=== PATIENT | female | born 1945 | race Caucasian/White ===

== ENCOUNTER → 2016-04-07 | Day surgery (SDC) | payer OTHER ==
[~2016-04-07] VITALS: Ht 160 cm; Wt 74.4 kg
[~2016-04-07] MED LIST: AUGMENTIN 875-1 EACH PO; DILTIAZEM ER120 M2 PO; ELIQUIS5 M1 PO; GABAPENTIN100 M2 PO; HYDROCHLOROTH12.5 M3 PO; METOPROLOL TART25 M1 PO; PROAIR HFA8.5 GM INH; SERTRALINE HCL25 MG PO; SIMVASTATIN40 M1 PO
--- NOTE | 2016-04-07 10:45 | RADIOLOGY REPORT ---
EXAMINATION: XR PORTABLE CHEST CLINICAL INFORMATION: 70-year-old female status post Port-A-Cath placement. COMPARISON: CXR from 02/28/2016 TECHNIQUE: Portable view of the chest was obtained. FINDINGS: Lungs are well expanded and clear. Cardiac silhouette is enlarged but unchanged. There is atherosclerotic calcification of the thoracic aorta. A right Port-A-Cath has been placed; the catheter terminates in the region of the superior vena cava and right atrial junction. There is no pneumothorax or pleural effusion. IMPRESSION: 1. Cardiomegaly. No acute cardiopulmonary abnormalities compared to 02/28/2016. 2. Port-A-Cath is in satisfactory position.
--- NOTE | 2016-04-08 14:42 | RADIOLOGY REPORT ---
EXAMINATION:\H\ \N\XR CHEST CLINICAL INFORMATION: Port-A-Cath insertion. COMPARISON: Chest x-ray dated 02/28/2016. TECHNIQUE: Single PA view of the chest was obtained. FINDINGS: Right subclavian port placement. The port tip is not well visualized on the final spot view. Refer to operative notes for details. IMPRESSION: Right subclavian port placement. Refer to operative notes for details.
--- NOTE | 2016-04-09 11:47 | Operative Report ---
Operative/Inv Procedure Report Surgery Date: 04/07/16 Name of Procedure: Fluoroscopic guided tunneled insertion of Port-A-Cath via right subclavian vein Pre-Operative Diagnosis: Colon cancer Post-Operative Diagnosis: Same Estimated Blood Loss: scant Surgeon/Yard Rigger: TYE URIAS,ADRIEN Amaya Anesthesia: local monitored anesthesi Operative/Procedure Note Note: With the patient supine on the OR table, right arm tucked, head not turned, after induction of MAC sedation, the patient's right subclavian area, including the shoulder neck and contralateral chest, were prepped and draped in the usual sterile fashion. After injecting local anesthetic in the right infraclavicular area, skin, subcutaneous to the clavicle, and inferiorly where the pocket will be, the patient was repositioned to Trendelenburg. Putting your right index finger on the sternal notch and thumb pressing down lateral to the curve of the clavicle, I made a puncture through the skin with the 15 blade scalpel next to thumb. Then along that line towards the tip of your finger, advance a large- bore needle, bevel towards the feet, on a slip tip 10 mL syringe barrel flat against the deltoid, advancing to bone and then "walking" it down just under the clavicle keeping the needle flat as possible, while maintaining vacuum with the plunger, accessing the subclavian venous blood, then replacing the syringe with a wire, sliding in with minimum resistance, confirming the position with the C- arm fluoroscope, making sure the wire is traveling down along the cava towards the right side of the heart and not up or across, and no ectopy. Next I secured the wire to the drape, measured (approximately 23 cm), cut and attached the catheter to the port. Approximately 3-4 cm inferior to the stick site a 2-1/2 cm long skin incision was made with a 15 blade scalpel along Langers lines. It was deepened with cautery and a space was developed inferiorly under the subcutaneous layer. The Port-A-Cath was laid in there and secured in [address] with 2-0 Prolene through the holes in the port, the sutures were kept loose on snaps at this point. Next the catheter was tunneled up subcutaneously with a snap and brought out through the stick site next to the wire. Then the dilator only, was passed over the wire until you could feel it slide under the clavicle, then removed, then re-advanced this time with the peel-away sheath over it, while advancing simultaneously pull the dilator out and advance the sheath, eventually pulling out the dilator and wire completely. Then the catheter was put into the sheath as far as it'll go then while holding that knuckle down with DeBakey's, gently peel-away the sheath with your product development assistant. Now the correct position of the catheter was confirmed with the fluoroscope, using a Olivier needle and heparinized saline solution, the catheter was first aspirated then flushed with approximately 3 mL's, with minimal resistance. The patient was repositioned to neutral, after tying down the 2 Prolenes, the larger incision was closed in layers, 3-0 Vicryl deep and 4-0 subcuticular Monocryl for the skin, and one subcuticular Monocryl for the stick site. Both areas were covered with Mastisol Steri-Strips Telfa and Tegaderm. Chest x-ray was ordered to be done in the recovery room. Lap and sponge counts were correct. Wound expectancy was clean, IV fluids crystalloid, complications none, patient tolerated the procedure well was awakened and returned to the recovery room in satisfactory condition.
== END ==
LOC: STS 03:35
DX: C18.0 Malignant neoplasm of cecum (principal); Z87.891 Personal history of nicotine dependence; I10 Essential (primary) hypertension; I48.0 Paroxysmal atrial fibrillation; I34.0 Nonrheumatic mitral (valve) insufficiency; I25.10 Atherosclerotic heart disease of native coronary artery without angina pectoris; Z79.01 Long term (current) use of anticoagulants
CPT/HCPCS: 93005; 93010; C1751; J0690; J1644; J2250; J2405

== ENCOUNTER 2016-08-11 08:29 | Inpatient (IN) | payer OTHER ==
[~2016-08-11] VITALS: Ht 160 cm; Wt 75.0 kg
[~2016-08-11 08:29] MED LIST changes: -DILTIAZEM ER120 M2 PO; -GABAPENTIN100 M2 PO; -PROAIR HFA8.5 GM INH; -SERTRALINE HCL25 MG PO
--- NOTE | 2016-08-11 08:33 | ED DYSPNEA/ASTHMA COMPLAINT ---
History of Present Illness General Chief Complaint: Dyspnea (COPD, CHF, Other) Stated Complaint: SOB Source: patient, old records, EMS Exam Limitations: no limitations Vital Signs & Intake/Output Vital Signs & Intake/Output Vital Signs Date Time Temp Pulse Resp B/P B/P Pulse O2 O2 Flow FiO2 Mean Ox Delivery Rate 08/12 0803 97 116/60 08/12 0803 97.9 86 18 13/80 95 Nasal 2.0L Cannula 08/12 0800 Nasal 3.0L Cannula 08/12 0009 98.0 97 18 116/60 93 Nasal 2.0L Cannula 08/12 0000 Nasal 3.0L Cannula 08/11 2147 Nasal 2.5L Cannula 08/11 2048 93 112/62 08/11 1739 Nasal 3.0L Cannula ED Intake and Output 08/12 0000 08/11 1200 Intake Total 712 Output Total 900 1100 Balance -188 -1100 Intake, IV 52 Intake, Oral 660 Output, Urine 900 1100 Patient 173 lb 172 lb Weight Weight Chair scale Reported by Patient Measurement Method Allergies Coded Allergies: red dye (RASH 01/16/16) Uncoded Allergies: NARCOTICS (Intermediate, VOMITING 01/16/16) Reconcile Medications Apixaban (Eliquis) 5 MG TABLET 1 TAB PO BID ANTICOAGULATION Metoprolol Tartrate 25 MG TABLET 1 TAB PO BID BP (Reported) Simvastatin (Simvastatin*) 40 MG TABLET 1 TAB PO QPM DIRECTED (Reported) Triage Nurses Notes Reviewed? yes Onset: Abrupt Duration: since 3 am Timing: multiple episodes today Severity: moderate, severe Activities at Onset: sleep Associated Symptoms: DYSPNEA, HYPOXIA HPI: This is a 71-year-old female with history of colon resection for cancer in February, new diagnosis of A. fib in March presents via EMS from home for chief complaint of shortness of breath started abruptly at 3:00 this morning. She states the shortness of breath woke her up from sleep. She did brief episode of pain underneath her arm and chest heaviness. She states she had to holler for her granddaughter to help her. She is not on oxygen at home but she used her inhaler without any relief. Denies any fever or chills. Denies any productive cough. She is due to have a follow up ECHO by Dr. Crum next week because she had an EF of 35% on the previous one while in the hospital. At that time it was unclear if the EF was low secondary to chemotherapy toxicity. Family reports that she looked blue when they found her. She was placed on a non rebreather by EMS which improved the patient's symptoms. Past History Travel History Traveled to [place] past 21 day No Medical History Any Pertinent Medical History? see below for history Neurological: NONE EENT: NONE Cardiovascular: aortic aneurysm, AFIB, hypertension, hyperlipidemia, syncope Respiratory: NONE Gastrointestinal: NONE Hepatic: NONE Renal: NONE Musculoskeletal: osteoarthritis Psychiatric: NONE Endocrine: NONE Blood Disorders: NONE Cancer(s): colon/rectal cancer ANY COMMODITY BUYER/Reproductive: NONE History of MRSA: No History of VRE: No History of CDIFF: No Influenza Vaccine: 12/21/15 Surgical History Surgical History: appendectomy, hysterectomy, bilateral oophorectomy BLADDER SX CARPAL TUNNEL SX Psychosocial History Who do you live with Patient/Self Services at Home None What is your primary language Occitan Tobacco Use: Quit >30 days ago ETOH Use: denies use Illicit Drug Use: denies illicit drug use Family History Hx Contributory? No Review of Systems Review of Systems Constitutional: Denies: chills, fever. EENTM: Reports: no symptoms. Respiratory: Reports: short of breath. Denies: cough, sputum production. Cardiovascular: Reports: palpitations. Denies: chest pain, peripheral edema, syncope. GI: Denies: abdominal pain, nausea, vomiting. Genitourinary: Denies: discharge, dysuria. Musculoskeletal: Reports: no symptoms. Skin: Reports: no symptoms. Neurological/Psychological: Reports: no symptoms. Hematologic/Endocrine: Denies: bruising, bleeding, polyuria, polydipsia. Immunologic/Allergic: Denies: splenectomy. All Other Systems: Reviewed and Negative Physical Exam Physical Exam General Appearance: well developed/nourished, alert, awake, anxious, mild distress, moderate distress Head: atraumatic, normal appearance Eyes: Bilateral: normal appearance, PERRL. Ears, Nose, Throat: normal pharynx, abnormal Tympanic (R) Neck: supple, JVD Respiratory: accessory muscle use, wheezing, respiratory distress Cardiovascular: irregularly irregular Peripheral Pulses: 2+ radial (R), 2+ radial (L) Gastrointestinal: soft, DISTENDED Extremities: normal inspection, normal range of motion, no edema Neurologic/Psych: awake, alert, oriented x 3 Skin: intact, normal color, warm/dry Core Measures ACS in differential dx? Yes ASA ordered for poss ACS? No-ACS ruled out Severe Sepsis Present: No Septic Shock Present: No Progress Differential Diagnosis: bronchitis, CHF, COPD, pulmonary embolism, pneumonia, PLEURAL EFFUSION, CARDIOTOXICITY FROM CHEMOTHERAPY Plan of Care: Orders Procedure Date/time Status MAGNESIUM 08/13 0600 Active BASIC ELECTROLYTES PLUS BUN&CR 08/13 0600 Active MAGNESIUM 08/12 0637 Complete Lab Add-on Test 08/12 UNK Active RT: Evaluation 08/11 2146 Active THERAPIST ORDERS 08/11 2144 Complete OXYGEN SETUP (GEN) 08/11 2144 Complete Weight 08/11 1753 Active Vital Signs 08/11 172 Active Teach/Educate 08/11 172 Active Pain Treatment and Response 08/11 172 Active Nutritional Intake, Monitor 08/11 1723 Active Isolation 08/11 1723 Active Intake & Output 08/11 1723 Active Patient Care Conference 08/11 1723 Active Activity/Ambulation 08/11 1723 Active OXYGEN SETUP CHG 08/11 UNK Complete INCENTIVE SPIROMETRY TRX CHG 08/11 UNK Complete AEROSOL CHG 08/11 UNK Complete OXYGEN 08/11 UNK Complete OXYGEN TRANSPORT 08/11 UNK Complete Current Medications Sig/Cathy Start time Last Medication Dose Stop Time Status Admin Oxycodone HCl 5 MG Q6 PRN 08/12 0815 AC (Roxicodone) Oxycodone HCl 10 MG Q6 PRN 08/12 0815 AC (Roxicodone) Albuterol Sulfate 3 ML Q4P PRN 08/11 2215 AC 08/11 (Proventil) 2145 Ipratropium [place] 2.5 ML Q4P PRN 08/11 2215 AC 08/11 (Atrovent) 2145 Apixaban 5 MG BID 08/11 2200 AC 08/12 (Eliquis) 0803 Metoprolol Tartrate 25 MG BID 08/11 2200 AC 08/12 (Lopressor) 0803 Furosemide 20 MG 0730,1630 08/11 1800 AC 08/12 (Lasix) 0803 Atorvastatin Calcium 20 MG 1700 08/11 1700 AC 08/11 (Lipitor) 1857 Acetaminophen 650 MG Q6P PRN 08/11 1215 AC (Tylenol) Diltiazem HCl 125 MG Q24H 08/11 1145 AC 08/12 (Cardizem DRIP) 1049 Sodium Chloride 100 ML (Normal Saline 0.9%) Laboratory Tests 08/12/16 0637: Anion Gap 9, Estimated GFR > 60, BUN/Creatinine Ratio 26.7 H, Magnesium 1.8, Triglycerides 245 H, Cholesterol 137, LDL Cholesterol, Calc 52 L, HDL Cholesterol 36 L, Cholesterol/HDL Ratio 4, PT 12.6 H, INR 1.20 H, CBC w Diff NO MAN DIFF REQ, RBC 3.98 L, MCV 98.9, MCH 33.6 H, RDW 18.3 H, MPV 8.2, Gran % 68.2, Lymphocytes % 21.2, Monocytes % 7.6, Eosinophils % 2.4, Basophils % 0.6, Absolute Granulocytes 5.6, Absolute Lymphocytes 1.7, Absolute Monocytes 0.6, Absolute Eosinophils 0.2, Absolute Basophils 0, PUBS MCHC 34.0 08/11/16 2115: Troponin I 0.04 08/11/16 1616: Lactic Acid 1.8 patietn with improved heart rate after IV lopressor. Feels slightly improved after neb but still minimal air movement. iv lasix 20 mg ordered. cardizem drip ordered. d/w dr crum. dr dixon covering in [facility] today adn he will see the patient. Admitted to hospitalist service. patient much improved after IV lasix, breathing is now normalizing. Patient appears well. (ARSH URIAS,BRYAN) Diagnostic Imaging: Viewed by Me: Radiology Read. Discussed w/RAD: Radiology Read. CXR Impression: PATIENT: LENNOX REDDING PRESENT AGE : 71 PATIENT ACCOUNT NO: [id number] : 45 LOCATION: [facility] ORDERING PHYSICIAN: BRYAN CABAN MD SERVICE DATE: 08/11/16 EXAM TYPE: RAD - XRY -PORTABLE CHEST XRAY EXAMINATION: XR PORTABLE CHEST CLINICAL INFORMATION: Dyspnea, new onset atrial fibrillation. COMPARISON: 07/22/2016. TECHNIQUE: Portable frontal view of the chest was obtained. FINDINGS: Single lumen implanted right subclavian catheter is identified with its tip in the right atrium unchanged.. Lung volumes are diminished. Heart appears mildly enlarged which has increased in the interval. New bibasilar opacities suggest trace bilateral pleural effusions and atelectasis. Infiltrate less likely though not excluded. While there is some mild increase in interstitial markings, no overt pulmonary edema or cephalization of the pulmonary vasculature is seen. There is no evidence of pneumothorax. Included osseous structures appear largely unremarkable. IMPRESSION: The heart is enlarged with low lung volumes with mild interstitial prominence with probable bilateral trace pleural effusions along with basilar atelectasis. DICTATED BY: LADAN LEONE MD DATE/TIME DICTATED:911 DRAIN LAYER:MIKE DATE/TIME TRANSCRIBED:08/11/16911 CONFIDENTIAL, DO NOT COPY WITHOUT APPROPRIATE AUTHORIZATION. <Electronically signed in Other Vendor System> SIGNED BY: LADAN LEONE MD 08/11/16918 Initial ED EKG: RAPID AFIB/FLUTTER Rhythm Strip: atrial flutter Departure Departure Time of Disposition: 1051 Disposition: STILL A PATIENT Condition: Stable Clinical Impression Primary Impression: Rapid atrial fibrillation Secondary Impressions: CHF (congestive heart failure), Dyspnea Referrals: JONNY URIAS,MATILDE (PCP/Family) PONCHO URIAS,MARY CRUM MD,Jamarcus MANRIQUE Departure Forms: Customer Survey General Discharge Information Admission Note Spoke With: RAKEL URIAS,JACQUIE Colon Documentation of Exam: Documentation of any treatments & extenuating circumstances including Concerns Regarding Discharge (functional status, medication knowledge or non-compliance, living conditions, etc.) that warrant an admission rather than observation: [ TELE MONITOR, CAREFUL DIURESIS, MONITOR I/O, CARDIOLOGY CONSULT DR DIXON, HEART RATE CONTROL] Critical Care Note Critical Care Note Critical Care Time: 30-74 min
--- NOTE | 2016-08-11 08:36 | NUR ---
PT C/O SOB X FEW DAYS BUT TODAY UNABLE TO GET IT UNDER CONTROL. PT CURRENTLY BEING TREATED FOR COLON CANCER WITH CHEMO WHICH WAS RECENTLY D/C'D D/T SOB. PT DENIES CP BUT STATES + CHEST HEAVINESS. PT IN RAPID A FIB WHICH SHE TAKE ELAQUIS FOR. PT CURRENTLY ON NRB AND O2 SATS ARE 96%. DR CABAN AT BEDSIDE FOR EVALUATION FOR
[2016-08-11] MEDS ORDERED: METOPROLOL TART25 M1 PO (09:06)
[2016-08-11 09:08] LABS: ABSOLUTE BASOPHIL COUNT 0.1 /CUMM (0.0-0.2); ABSOLUTE EOSINOPHIL COUNT 0.1 /CUMM (0.0-0.7); ABSOLUTE GRANULOCYTE CT 8.1 /CUMM (1.4-6.5); ABSOLUTE LYMPH COUNT 1.5 /CUMM (1.2-3.4); ABSOLUTE MONOCYTE COUNT 0.3 /CUMM (0.10-0.60); BASOPHIL % 0.9 % (0.0-2.0); EOSINOPHIL % 0.8 % (0-5); GRANULOCYTE % 80.4 % (42.2-75.2); HEMATOCRIT 43.3 % (37-47); MEAN CORPUSCULAR HGB 33.2 PG (27.0-31.0); MEAN CORPUSCULAR HGB CONC 33.5 G/DL (33.0-37.0); MEAN CORPUSCULAR VOLUME 99.2 FL (81.0-99.0); MEAN PLATELET VOLUME 7.7 FL (7.4-10.4); PLATELET COUNT 231 /CUMM (130-400); RBC DISTRIBUTION WIDTH 18.5 % (11.5-14.5); RED BLOOD CELL CT 4.37 /CUMM (4.20-5.40); WHITE BLOOD CELL COUNT 10.1 /CUMM (4.8-10.8)
--- NOTE | 2016-08-11 09:19 | RADIOLOGY REPORT ---
EXAMINATION: XR PORTABLE CHEST CLINICAL INFORMATION: Dyspnea, new onset atrial fibrillation. COMPARISON: 07/22/2016. TECHNIQUE: Portable frontal view of the chest was obtained. FINDINGS: Single lumen implanted right subclavian catheter is identified with its tip in the right atrium unchanged.. Lung volumes are diminished. Heart appears mildly enlarged which has increased in the interval. New bibasilar opacities suggest trace bilateral pleural effusions and atelectasis. Infiltrate less likely though not excluded. While there is some mild increase in interstitial markings, no overt pulmonary edema or cephalization of the pulmonary vasculature is seen. There is no evidence of pneumothorax. Included osseous structures appear largely unremarkable. IMPRESSION: The heart is enlarged with low lung volumes with mild interstitial prominence with probable bilateral trace pleural effusions along with basilar atelectasis.
[2016-08-11 09:20] LABS: PT 13.4 SEC (9.4-12.5); PTT 23 SEC (25-37)
--- NOTE | 2016-08-11 09:30 | NUR ---
CRITICAL TEST RESULTS [id number] LENNOX REDDING 71 F TESTS AND RESULTS: LACTIC 2.7 Results received and read back by: MATEUS YU Results received date and time: 08/11/16 0930 The following provider was notified of the results, and read the results back: DR CABAN Notified date and time: 08/11/16 at 0930
--- NOTE | 2016-08-11 10:07 | NUR ---
PT MEDICATED DOCUMENTED IN [facility]. FAMILY MEMBERS AT BEDSIDE
--- NOTE | 2016-08-11 10:18 | NUR ---
PT ASSISTED ONTO BEDSIDE COMMODE. CALL MORALES WITHIN REACH
--- NOTE | 2016-08-11 10:40 | NUR ---
URINE SPECIMEN SENT TO LAB
--- NOTE | 2016-08-11 11:00 | History & Physical ---
NIYAH GHOSH 08/11/16 1100: General Information and HPI MD Statement: I have seen and personally examined LENNOX MARX and documented this H&P. The patient is a 71 year old F who presented with a patient stated chief complaint of [persistent shortness of breath]. Source of Information: patient, family Exam Limitations: no limitations History of Present Illness: Mrs. Marx is a 71-year-old lady with a PMH of HFrEF with LVEF 30-35% ( echocardiogram 07/14/2016), HTN, HLD, infrarenal AAA, CAD, A. fib with history of ventricular ectopy, colon cancer s/p right hemicolectomy (02/2016) currently undergoing chemotherapy with Dr. Houston (completed 6 rounds every 2 weeks of 5-FU) who presents with complaints of persistent/worsening shortness of breath. She reports that since her third round of chemotherapy she has been experiencing intermittent episodes of shortness of breath that has now become constant and worsening over the past few days. She she describes this as a difficulty moving air with associated exertional shortness of breath significant enough to limit her ability to do dishes, put on clothes and walk up steps. She denies any chest pain, palpitations, dizziness during this time. At her baseline she uses 3 pillows to sleep which has been stable for multiple years. She does endorse a few episodes of PND requiring the fan to alleviate her shortness of breath. Symptoms were significant enough to wake her up from sleep for the first time on Wednesday morning at 2 AM thAT resolved on its own. This morning she was again woken up by the same sensation of SOB unable to speak associated with sweating and noted to be cyanotic "purple face and lips". She does endorse intermittent episodes of night sweats since her chemotherapy started. 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 self Services at Home: None ETOH Use: denies use Illicit Drug Use: denies illicit drug use Functional Ability ADLs Independent: dressing, eating, toileting, bathing. Ambulation: independent IADLs Independent: shopping, housework, finances, food prep, telephone, transportation , medication admin. Review of Systems Review of Systems Constitutional: Reports: see HPI. EENTM: Reports: no symptoms. Cardiovascular: Reports: see HPI. Respiratory: Reports: see HPI. GI: Reports: see HPI. Musculoskeletal: Reports: see HPI. Skin: Reports: no symptoms. Exam & Diagnostic Data Last 24 Hrs of Vital Signs/I&O Vital Signs Date Time Temp Pulse Resp B/P B/P Pulse O2 O2 Flow FiO2 Mean Ox Delivery Rate 08/11 1247 97.9 98 20 120/74 96 Nasal 2.0L Cannula 08/11 1030 82 20 112/62 93 Nasal 2.0L Cannula 08/11 1006 97.0 109 20 107/68 08/11 1000 108 20 107/68 96 08/11 0927 92 Nasal 2.0L Cannula 08/11 0905 92 Nasal 3.0L Cannula 08/11 0834 97.0 111 24 108/88 96 Non 10L ReBreather Intake & Output 08/11 1600 08/11 0800 08/11 0000 Intake Total Output Total 1100 Balance -1100 Output, Urine 1100 Patient 172 lb Weight Weight Reported by Patient Measurement Method Physical Exam General Appearance Alert, Cooperative, No Acute Distress Skin No Significant Lesion, Mid abdominal incision from previous surgery well healed HEENT EOMI, Mucous Membr. moist/pink Cardiovascular Normal S1, Normal S2, Irregularly irregular rhythm Lungs Clear to Auscultation, Normal Air Movement Abdomen Normal Bowel Sounds, Soft, No Tenderness, Increased abdominal girth Extremities No Edema, Normal Pulses Vascular Pulses Symmetrical Last 24 Hrs of Labs/Joce: Laboratory Tests 08/11/16 1157: Lactic Acid 2.2 H 08/11/16 1040: Urine Color STRAW, Urine Clarity CLEAR, Urine pH 6.0, Ur Specific [place] 1.010, Urine Protein NEG, Urine Ketones NEG, Urine Nitrite NEG, Urine Bilirubin NEG, Urine Urobilinogen 0.2, Ur Leukocyte Esterase NEG, Ur Microscopic SEDIMENT EXAMINED, Urine RBC 1-3, Urine WBC RARE, Ur Epithelial Cells RARE, Urine Bacteria MOD H, Urine Hemoglobin TRACE-INTACT, Urine Glucose NEG 08/11/16 0902: Lactic Acid 2.7 H 08/11/16 0854: Anion Gap 13, Estimated GFR > 60, BUN/Creatinine Ratio 26.7 H, Glucose 168 H, Calcium 8.7, Phosphorus 5.4 H, Magnesium 1.8, Total Bilirubin 0.8, AST 49 H, ALT 40, Alkaline Phosphatase 73, Troponin I 0.03, Ivc-V-Wupcxtgszob Pept 3930 H , Total Protein 6.0 L, Albumin 3.5, Globulin 2.5, Albumin/Globulin Ratio 1.4, TSH Pending, Free T4 1.01, PT 13.4 H, INR 1.28 H, APTT 23 L, CBC w Diff NO MAN DIFF REQ, RBC 4.37, MCV 99.2 H, MCH 33.2 H, RDW 18.5 H, MPV 7.7, Gran % 80.4 H, Lymphocytes % 15.0 L, Monocytes % 2.9, Eosinophils % 0.8, Basophils % 0.9, Absolute Granulocytes 8.1 H, Absolute Lymphocytes 1.5, Absolute Monocytes 0.3, Absolute Eosinophils 0.1, Absolute Basophils 0.1, PUBS MCHC 33.5 Diagnostic Data EKG Results Atrial fibrillation. Paired Ventricular premature complexes. Borderline prolonged QT interval. QTc 490 CXR Results The heart is enlarged with low lung volumes with mild interstitial prominence with probable bilateral trace pleural effusions along with basilar atelectasis. Assessment/Plan Assessment: 71-year-old lady with a PMH of HFrEF with LVEF 30-35% (echocardiogram 07/14/2016) , HTN, HLD, infrarenal AAA, CAD, A. fib with history of ventricular ectopy, colon cancer s/p right hemicolectomy (02/2016) currently undergoing chemotherapy with Dr. Huoston (completed 6 rounds every 2 weeks of 5-FU) who presents with complaints of persistent/worsening shortness of breath. Symptoms started after her third/fourth round of chemotherapy and have progressively worsened. First episode of shortness of breath waking her up from sleep on Wednesday and a second episode last night with inability to catch her breath associated cyanosis, sweating. VS on admission: BP 108/88, HR 111, RR 24, SPO2 96% on 2 LNC, T 97.0. On arrival SpO2 of 96% on NRB, 86% on room air Pertinent labs: WBC 10.1, H&H 14.5/43.3 platelets 231, Na 142, K+ 3.8, chloride 110, bicarbonate 19, BUN/CR 16/0.6, glucose 168. INR 1.28 Lactic acid: 2.7/2.2 ProBNP 3930 Problem list: 1. A. fib/A flutter with RVR 2. Acute hypoxic respiratory failure: 86% on RA, 96% on NRB on arrival 3. HFrEF with exacerbation: ProBNP 3930 4. Elevated lactic acid: 2.7 5. Mild hypokalemia: 3.8 Plan: * Admit to telemetry for continuous cardiac monitoring. Serial EKG/troponin at 3 PM, 9 PM to rule out ACS * Repeat echocardiogram to assess for LVEF/valve functioning. Patient has had a decline in cardiac output from 50/55% in February 2016 down to 30/35% in June 2016. This could be secondary to her atrial fibrillation. At this time unclear/ unlikely to be due to the 5-fluorouracil * Patient is currently only on a beta magnolia for rare control. We'll discuss with cardiology on utility of starting the patient on lisinopril, furosemide/ spironolactone based on cardiac function and symptoms * We'll maintain patient on 20 mg IV daily starting tomorrow. Monitor renal function, potassium, daily weights, I&O * Incentive spirometry, DuoNeb for hypoxic respiratory failure * Elevation in lactic acid likely secondary to the hypoxia. Trending down at this time * Potassium 3.8, replete with K Dur 40 mEq 1 * Magnesium 1.8, replete with Mag-Ox 4001 * Lipid panel in the a.m. Continue atorvastatin 10 mg daily * Heart healthy diet * DVT prophylaxis: Eliquis 5 mg BID * Full code As Ranked By This Provider Problem List: 1. Rapid atrial fibrillation 2. HFrEF (heart failure with reduced ejection fraction) 3. Dyspnea 4. Lactic acid increased 5. Hypokalemia Core Measures/Miscellaneous Acute Coronary Syndrome ACS Diagnosis: No Cerebrovascular Accident CVA/TIA Diagnosis: No Congestive Heart Failure CHF Diagnosis: No Venous Thromboembolism VTE Risk Factors: Age > 40, Cancer/chemo/oth therapy [facility] prophylaxis d/t: No contraindications No VTE Pharm Prophylaxis d/t: No contraindications VTE Diagnosis: No VTE Type: NONE VTE Confirmed by (Test): NONE Severe Sepsis Severe Sepsis Present: No Septic Shock Septic Shock Present: No Miscellaneous Documentation Attending Case Discussed With: YULISSA MANCILLA MD Primary Care Physician: MATILDE FULLER MD Patient sees these Specialists Klaudia Robertson MD (cardiology) Level of Patient Care: Telemetry Resident Review Statement Resident Statement: examined this patient, discussed with healthcare administration intern, agreed with healthcare administration intern, discussed with family, reviewed EMR data (avail), discussed with nursing , reviewed images SHAREE ELLINGTONADRIANO 08/26/16 0910: General Information and HPI Allergies/Medications Allergies: Coded Allergies: Fish Containing Products (Severe, THROAT CLOSURE 08/13/16) red dye (RASH 01/16/16) Uncoded Allergies: NARCOTICS (Intermediate, VOMITING 01/16/16) Home Med list Apixaban (Eliquis) 5 MG TABLET 1 TAB PO BID ANTICOAGULATION Diltiazem Cd (Diltiazem ER) 120 MG CAP.ER.DEG 120 MG PO DAILY AFIB Gabapentin 100 MG CAPSULE 100 MG PO Q12P PRN ANXIETY Hydrochlorothiazide 12.5 MG CAPSULE 1 CAP PO DAILY DIURETIC Metoprolol Tartrate 25 MG TABLET 37.5 MG PO BID HTN Sertraline HCl 25 MG TABLET 25 MG PO DAILY Anxiety Simvastatin (Simvastatin*) 40 MG TABLET 1 TAB PO QPM DIRECTED (Reported) Attending MD Review Statement Attending Statement Attending MD Statement: examined this patient, discuss w/resident/PA/ELECTRONIC TECH, agreed w/resident/PA/ELECTRONIC TECH, reviewed EMR data (avail), discussed with nursing Attending Assessment/Plan: please see my separate attending note for more details.
--- NOTE | 2016-08-11 11:42 | NUR ---
Resting quietly. Requesting coffee. Family remains at bedside.
--- NOTE | 2016-08-11 12:28 | NUR ---
CRITICAL TEST RESULTS [id number] LENNOX REDDING 71 F TESTS AND RESULTS: LACTIC 2.2 Results received and read back by: CHAD VOGT Results received date and time: 08/11/16 1228 The following provider was notified of the results, and read the results back: DR CABAN Notified date and time: 08/11/16 at 1225
--- NOTE | 2016-08-11 12:31 | NUR ---
MD CORRAL NOTIFIED OF LACTIC ACID 2.2
--- NOTE | 2016-08-11 13:07 | Cons- Cardiology ---
General Information and HPI Consulting Request Date of Consult: 08/11/16 Requested By: YULISSA MANCILLA MD Reason for Consult: Atrial fibrillation, CHF History of Present Illness: The patient is a 70-year-old female with history of CAD, left ventricular dysfunction, and colon cancer, currently undergoing chemotherapy. She is followed in the office by Dr. Robertson. She presents with complaint of worsening shortness of breath over past few days. She describes a significant difficulty breathing over the past 24 to 48 hours, limiting her ability to perform activities of daily living. No chest pain. No palpitations. She has 3 pillow orthopnea which is stable. She was noted to have atrial fibrillation with rapid ventricular rate. Cardizem drip was started. No syncope. No lightheadedness or dizziness. No nausea or vomiting. Allergies/Medications Allergies: Coded Allergies: red dye (RASH 01/16/16) Uncoded Allergies: NARCOTICS (Intermediate, VOMITING 01/16/16) Home Med List: Apixaban (Eliquis) 5 MG TABLET 1 TAB PO BID ANTICOAGULATION Metoprolol Tartrate 25 MG TABLET 1 TAB PO BID BP (Reported) Simvastatin (Simvastatin*) 40 MG TABLET 1 TAB PO QPM DIRECTED (Reported) Current Medications: Current Medications Sig/Cathy Start time Last Medication Dose Route Stop Time Status Admin Acetaminophen 650 MG Q6P PRN 08/11 1215 AC PO Albuterol Sulfate 3 ML ONCE ONE 08/11 0845 DC 08/11 INH 08/11 0846 0910 Apixaban 5 MG BID 08/11 2200 AC PO Atorvastatin Calcium 20 MG 1700 08/11 1700 AC PO Diltiazem HCl 0 .STK-MED ONE 08/11 1148 DC IV Diltiazem HCl 125 MG Q24H 08/11 1145 AC 08/11 Sodium Chloride 100 ML IV 1152 Furosemide 20 MG DAILY 08/12 1000 AC IV Furosemide 0 .STK-MED ONE 08/11 0956 DC IV Furosemide 20 MG ONCE ONE 08/11 0945 DC 08/11 IV 08/11 0946 1006 Ipratropium [place] 2.5 ML ONCE ONE 08/11 0845 DC 08/11 INH 08/11 0846 0910 Magnesium Oxide 400 MG ONE ONE 08/11 1500 DC 08/11 PO 08/11 1501 1525 Metoprolol Tartrate 5 MG ONCE ONE 08/11 1000 DC 08/11 IV 08/11 1001 1006 Metoprolol Tartrate 0 .STK-MED ONE 08/11 0956 DC IV Oxycodone/ 1 TAB Q6P PRN 08/11 1215 AC Acetaminophen PO Oxycodone/ 2 TAB Q6P PRN 08/11 1215 AC Acetaminophen PO Potassium Chloride 0 .STK-MED ONE 08/11 1313 DC PO Potassium Chloride 40 MEQ ONCE ONE 08/11 1215 DC 08/11 PO 08/11 1216 1310 Review of Systems Review of Systems: No rash. No tremor. No melena. No hemoptysis. No hematemesis. All other systems are reviewed and are noted to be negative. 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 self Services at Home: None ETOH Use: denies use Illicit Drug Use: denies illicit drug use Functional Ability ADLs Independent: dressing, eating, toileting, bathing. Ambulation: independent IADLs Independent: shopping, housework, finances, food prep, telephone, transportation , medication admin. Exam & Diagnostic Data Vital Signs and I&O Vital Signs Date Time Temp Pulse Resp B/P B/P Pulse O2 O2 Flow FiO2 Mean Ox Delivery Rate 08/11 1505 86 Room Air 08/11 1247 97.9 98 20 120/74 96 Nasal 2.0L Cannula 08/11 1030 82 20 112/62 93 Nasal 2.0L Cannula 08/11 1006 97.0 109 20 107/68 08/11 1000 108 20 107/68 96 08/11 0927 92 Nasal 2.0L Cannula 08/11 0905 92 Nasal 3.0L Cannula 08/11 0834 97.0 111 24 108/88 96 Non 10L ReBreather Intake & Output 08/11 1600 08/11 0800 08/11 0000 08/10 1600 08/10 0800 08/10 0000 Intake Total Output Total 1100 Balance -1100 Output, Urine 1100 Patient 172 lb Weight Weight Reported by Patient Measurement Method Physical Exam: Gen: The patient is in no acute distress HEENT: Normal nose, ears, and oropharynx. Pupils equal bilaterally. Conjunctiva normal. Neck: Supple with no JVD, no masses, and no thyromegaly Lungs: scattered rales bilaterallywith normal respiratory effort Heart: Irregular irregular, S1, S2, 1/6 systolic murmur at the apex. Left upper extremity edema peripheral edema, 1+ pulses in the lower extremities bilaterally Abdomen: Soft, nontender, no masses. No hepatomegaly. No splenomegaly Extremities: 1+ edema Normal muscle strength in the upper and lower extremities Skin: Normal skin turgor with no skin ulcers or lesions noted. Neuro: Cranial nerves intact. Sensation intact Psych: Alert and oriented 3 with appropriate affect Labs/Joce Results: Laboratory Tests 08/11 08/11 08/11 08/11 1616 1513 1157 1040 Chemistry Lactic Acid (0.7 - 2.1 mmol/L) 1.8 2.2 H Troponin I (< 0.11 ng/ml) 0.03 Urines Urine Color (YEL,AMB,STR) STRAW Urine Clarity (CLEAR) CLEAR Urine pH (5.0 - 8.0) 6.0 Ur Specific [place] (1.001 - 1.035) 1.010 Urine Protein (NEG,<30 MG/DL) NEG Urine Ketones (NEG) NEG Urine Nitrite (NEG) NEG Urine Bilirubin (NEG) NEG Urine Urobilinogen (0.1 - 1.0 EU/dl) 0.2 Ur Leukocyte Esterase (NEG) NEG Ur Microscopic SEDIMENT EXAMINED Urine RBC (0 - 5 /HPF) 1-3 Urine WBC (0 - 2 /HPF) RARE Ur Epithelial Cells (NONE,FEW) RARE Urine Bacteria (NEG/NONE) MOD H Urine Hemoglobin (NEG) TRACE-INTACT Urine Glucose (N MG/DL) NEG 08/11 08/11 0902 0854 Chemistry Sodium (137 - 145 mmol/L) 142 Potassium (3.5 - 5.1 mmol/L) 3.8 Chloride (98 - 107 mmol/L) 110 H Carbon Dioxide (22 - 30 mmol/L) 19 L Anion Gap (5 - 16) 13 BUN (7 - 17 mg/dL) 16 Creatinine (0.5 - 1.0 mg/dL) 0.6 Estimated GFR (>60 ml/min) > 60 BUN/Creatinine Ratio (7 - 25 %) 26.7 H Glucose (65 - 99 mg/dL) 168 H Lactic Acid (0.7 - 2.1 mmol/L) 2.7 H Calcium (8.4 - 10.2 mg/dL) 8.7 Phosphorus (2.5 - 4.5 mg/dL) 5.4 H Magnesium (1.6 - 2.3 mg/dL) 1.8 Total Bilirubin (0.2 - 1.3 mg/dL) 0.8 AST (14 - 36 U/L) 49 H ALT (9 - 52 U/L) 40 Alkaline Phosphatase (<127 U/L) 73 Troponin I (< 0.11 ng/ml) 0.03 Ejy-Y-Qbdaujizyli Pept (<125 pg/mL) 3930 H Total Protein (6.3 - 8.2 g/dL) 6.0 L Albumin (3.5 - 5.0 g/dL) 3.5 Globulin (1.9 - 4.2 gm/dL) 2.5 Albumin/Globulin Ratio (1.1 - 2.2 %) 1.4 TSH (0.270 - 4.200 uIU/mL) 2.110 Free T4 (0.78 - 2.44 ng/dL) 1.01 Coagulation PT (9.4 - 12.5 SEC) 13.4 H INR (0.90 - 1.19) 1.28 H APTT (25 - 37 SEC) 23 L Hematology CBC w Diff NO MAN DIFF REQ WBC (4.8 - 10.8 /CUMM) 10.1 RBC (4.20 - 5.40 /CUMM) 4.37 Hgb (12.0 - 16.0 G/DL) 14.5 Hct (37 - 47 %) 43.3 MCV (81.0 - 99.0 FL) 99.2 H MCH (27.0 - 31.0 PG) 33.2 H RDW (11.5 - 14.5 %) 18.5 H Plt Count (130 - 400 /CUMM) 231 MPV (7.4 - 10.4 FL) 7.7 Gran % (42.2 - 75.2 %) 80.4 H Lymphocytes % (20.5 - 51.1 %) 15.0 L Monocytes % (1.7 - 9.3 %) 2.9 Eosinophils % (0 - 5 %) 0.8 Basophils % (0.0 - 2.0 %) 0.9 Absolute Granulocytes (1.4 - 6.5 /CUMM) 8.1 H Absolute Lymphocytes (1.2 - 3.4 /CUMM) 1.5 Absolute Monocytes (0.10 - 0.60 /CUMM) 0.3 Absolute Eosinophils (0.0 - 0.7 /CUMM) 0.1 Absolute Basophils (0.0 - 0.2 /CUMM) 0.1 PUBS MCHC (33.0 - 37.0 G/DL) 33.5 Diagnostic Data EKG Results EKG tracing is independently reviewed, and reveals atrial fibrillation with ventricular response of 104, premature ventricular contractions CXR Results The heart is enlarged with low lung volumes with mild interstitial prominence with probable bilateral trace pleural effusions along with basilar atelectasis. Assessment/Plan Assessment/Plan Assessment: 1. Coronary artery disease 2. atrial fibrillation with rapid ventricular response 3. Acute on chronic systolic heart failure 4. Colon cancer, recent chemotherapy plan: * Cardizem drip, titrate to ventricular rate less than 100 * Lasix 20 milligrams IV q.12 hours * Monitor input and output with daily weights * Continue anticoagulation with Eliquis * Restart metoprolol 25 milligrams p.o. b.i.d. Consult Acknowledgment - Thank you for your consult request.
--- NOTE | 2016-08-11 13:58 | Admission Certification ---
Admission Certification Certification Statement - As attending physician, I certify that at the time of - admission, based on clinical presentation, severity of - symptoms, need for further diagnostic testing and - therapeutic interventions, and risk of adverse outcomes - without in-hospital treatment, in my clinical assessment, - this patient requires an acute hospital stay for a minimum - of two nights or longer. I have also considered psychsocial - factors such as support system, advanced age, financial - issues, cognitive issues, and failed out-patient treatments, - past re-admission history, safety of patient, and lack of - compliance as applicable. Specific rationale supporting this admission is: afib with rvr and acute systolic chf exacerbation.
--- NOTE | 2016-08-11 14:05 | PN- Att Addend ---
Attending MD Review Statement Attending Statement Attending MD Statement: examined this patient, discuss w/resident/PA/LABELING SPECIALIST, agreed w/resident/PA/LABELING SPECIALIST, discussed with family, reviewed EMR data (avail), discussed w/ nursing Attending Assessment/Plan: 71-year-old female with past medical history of smoking which she quit 1 year ago, has [id number] history of smoking, recent diagnosis of colon cancer status post resection in February 2016 for which she is getting chemotherapy with 5-FU. Patient has got 6 rounds of chemotherapy with the last one being 4 weeks ago. Patient started having these episodes of the intermittent shortness of breath after third round of chemotherapy which are progressively getting worse. Patient woke up this a.m. secondary to feeling shortness of breath around 3 AM and her granddaughter who lives upstairs in the different apartment came down to see her and found her to be short of breath and cyanotic. Patient came to the emergency room for above reason and was found to have heart rates in the range of 130 with atrial fibrillation and was started on cardizem drip. Patient was recently diagnosed with atrial fibrillation in March of this year and since then she has been on Eliquis. Patient in the emergency room was found to have elevated proBNP of 3000. Her CXR showed following- " The heart is enlarged with low lung volumes with mild interstitial prominence with probable bilateral trace pleural effusions along with basilar atelectasis." Patient is being admitted with atrial fibrillation with RVR and acute systolic CHF exacerbation along with possible COPD exacerbation. Patient was recently prescribed pro-air inhaler but patient says it's not helping her. Patient on exam in the emergency room had wheezing per ER physician but she did get nebulizer in the emergency room so currently she is not wheezing. Will likely benefit from starting symbicort or advair at time of discharge. Repeat echo. Cardizem drip started in ER. cardiology consulted. got lasix 20 iv in Er. will do serial trop. will start on 20 mg iv lasix daily. if she starts having wheezing again will start her on duonebs prn as needed. Lactic acid level in ER was 2.7. which is secondary to hypoxia. Does not need iv fluids as pt is in fluid overload.
--- NOTE | 2016-08-11 14:35 | NUR ---
REMAINS IN EXAM ROOM. YANIRA WEEMS INFUSING W/O PROBLEMS. AWAITING ROOM ASSIGNMENT.
--- NOTE | 2016-08-11 14:38 | NUR ---
BED ASSIGNMENT [id number]
--- NOTE | 2016-08-11 15:04 | NUR ---
ATTENDING PAGED TO NOTIFY HIM OF PATIENT'S RA SAT OF 86%. PATIENT IS PLACED BACK ON O2 3L/NC
--- NOTE | 2016-08-11 15:15 | NUR ---
REPEAT TROP DRAWN AND SENT TO THE LAB
--- NOTE | 2016-08-11 16:14 | NUR ---
NURSE CURRENTLY UNAVAILABLE TO TAKE REPORT. WILL CALL BACK.
--- NOTE | 2016-08-11 16:17 | NUR ---
REPEAT LACTIC DRAWN AND SENT TO THE LAB
--- NOTE | 2016-08-11 16:43 | NUR ---
ATTEMPTING TO CALL REPORT FOR 3RD TIME.
[2016-08-12 00:09] VITALS: BP 116/60
--- NOTE | 2016-08-12 03:59 | Event Note ---
Event Note Event Note: Got a call with report that pt had a 6 beat run of v-tach around 3:45 am
--- NOTE | 2016-08-12 04:13 | NUR ---
PT HAD A 6 BEAT RUN OF V-TACH. MD BATISTA AWARE. NNO AT THIS TIME.
--- NOTE | 2016-08-12 06:19 | PN- Housestaff ---
See Addendum Subjective Follow-up For: Rapid Afib CHF exacerbation Tele-Events Since Last Visit: A-flutter with HR in 70-181 6 beat Vtach Triplets BBB Subjective: Patient seen and examined at bedside. Resting comfortably in bed with no complaints. She reports feelig better with her breathing this morning although she feels like she might get the respiratory attack at times. Denies any chest discomfort, palpitations, dyspnea, lightheadedness, dizziness, abdominal pain, n /v/c/d. Satting well on 2.5 liters of oxygen. No events reported overnight. Review of Systems Constitutional: Reports: see HPI. Objective Last 24 Hrs of Vital Signs/I&O Vital Signs Date Time Temp Pulse Resp B/P B/P Pulse O2 O2 Flow FiO2 Mean Ox Delivery Rate 08/12 0803 97 116/60 08/12 0803 97.9 86 18 95 Nasal 2.0L Cannula 08/12 0800 Nasal 3.0L Cannula 08/12 0009 98.0 97 18 116/60 93 Nasal 2.0L Cannula 08/12 0000 Nasal 3.0L Cannula 08/11 2147 Nasal 2.5L Cannula 08/11 2048 93 112/62 08/11 1739 Nasal 3.0L Cannula 08/11 1505 86 Room Air 08/11 1247 97.9 98 20 120/74 96 Nasal 2.0L Cannula Intake & Output 08/12 1600 08/12 0800 08/12 0000 Intake Total 120 712 Output Total 500 900 Balance -380 -188 Intake, IV 52 Intake, Oral 120 660 Output, Urine 500 900 Patient 78.245 kg Weight Weight Chair scale Measurement Method Physical Exam General Appearance: Alert, Oriented X3, Cooperative, No Acute Distress Other Physical Findings: Skin No Significant Lesion, Mid abdominal incision from previous surgery well healed HEENT EOMI, Mucous Membr. moist/pink Cardiovascular Normal S1, Normal S2, Irregularly irregular rhythm Lungs Clear to Auscultation, Normal Air Movement Abdomen Normal Bowel Sounds, Soft, No Tenderness, Increased abdominal girth Extremities No Edema, Normal Pulses Vascular Pulses Symmetrical Current Medications: Current Medications Sig/Cathy Start time Last Medication Dose Route Stop Time Status Admin Acetaminophen 650 MG Q6P PRN 08/11 1215 AC PO Albuterol Sulfate 3 ML Q4P PRN 08/11 2215 AC 08/11 INH 2145 Apixaban 5 MG BID 08/11 2200 AC 08/12 PO 0803 Atorvastatin Calcium 20 MG 1700 08/11 1700 AC 08/11 PO 1857 Diltiazem HCl 0 .STK-MED ONE 08/11 1148 DC IV Diltiazem HCl 125 MG Q24H 08/11 1145 AC 08/12 Sodium Chloride 100 ML IV 1049 Furosemide 20 MG DAILY 08/12 1000 DC IV Furosemide 20 MG 0730,1630 08/11 1800 AC 08/12 IV 0803 Ipratropium [place] 2.5 ML Q4P PRN 08/11 2215 AC 08/11 INH 2145 Magnesium Oxide 400 MG ONE ONE 08/11 1500 DC 08/11 PO 08/11 1501 1525 Metoprolol Tartrate 25 MG BID 08/11 2199 AC 08/12 PO 0803 Oxycodone HCl 5 MG Q6 PRN 08/12 0815 AC PO Oxycodone HCl 10 MG Q6 PRN 08/12 0815 AC PO Oxycodone/ 1 TAB Q6P PRN 08/11 1215 DC Acetaminophen PO Oxycodone/ 2 TAB Q6P PRN 08/11 1215 DC Acetaminophen PO Potassium Chloride 20 MEQ ONCE ONE 08/12 1400 AC PO 08/12 1401 Potassium Chloride 40 MEQ ONCE ONE 08/12 1000 DC 08/12 PO 08/12 1001 1043 Potassium Chloride 0 .STK-MED ONE 08/11 1313 DC PO Potassium Chloride 40 MEQ ONCE ONE 08/11 1215 DC 08/11 PO 08/11 1216 1310 Last 24 Hrs of Lab/Joce Results Last 24 Hrs of Labs/Mics: Laboratory Tests 08/12/16 0637: Anion Gap 9, Estimated GFR > 60, BUN/Creatinine Ratio 26.7 H, Magnesium 1.8, Triglycerides 245 H, Cholesterol 137, LDL Cholesterol, Calc 52 L, HDL Cholesterol 36 L, Cholesterol/HDL Ratio 4, PT 12.6 H, INR 1.20 H, CBC w Diff NO MAN DIFF REQ, RBC 3.98 L, MCV 98.9, MCH 33.6 H, RDW 18.3 H, MPV 8.2, Gran % 68.2, Lymphocytes % 21.2, Monocytes % 7.6, Eosinophils % 2.4, Basophils % 0.6, Absolute Granulocytes 5.6, Absolute Lymphocytes 1.7, Absolute Monocytes 0.6, Absolute Eosinophils 0.2, Absolute Basophils 0, PUBS MCHC 34.0 08/11/16 2115: Troponin I 0.04 08/11/16 1616: Lactic Acid 1.8 08/11/16 1513: Troponin I 0.03 08/11/16 1157: Lactic Acid 2.2 H Assessment/Plan Assessment: 71-year-old lady with a PMH of HFrEF with LVEF 30-35% (echocardiogram 07/14/2016) , HTN, HLD, infrarenal AAA, CAD, A. fib with history of ventricular ectopy, colon cancer s/p right hemicolectomy (02/2016) currently undergoing chemotherapy with Dr. Houston (completed 6 rounds every 2 weeks of 5-FU) who presents with complaints of persistent/worsening shortness of breath. Symptoms started after her third/fourth round of chemotherapy and have progressively worsened. First episode of shortness of breath waking her up from sleep on Wednesday and a second episode last night with inability to catch her breath associated cyanosis, sweating. # Acute hypoxic respiratory failure: 86% on RA, 96% on NRB on arrival. Requiring 3 liters of oxygen on admission. Pt does not use any oxygen at home. * Vitals per protocol * Oxygen supplement to maintain O2 sat above 92% * TRC neb treatment as needed * Incentive spirometry, DuoNeb * Management as per plans for HF # HFrEF with exacerbation: ProBNP 3930. CXR on admission - enlarged with low lung volumes with mild interstitial prominence with probable bilateral trace pleural effusions along with basilar atelectasis. Patient has had a decline in cardiac output from 50/55 % in February 2016 down to 30/35% in June 2016. This could be secondary to her atrial fibrillation. At this time unclear/unlikely to be due to the 5- fluorouracil. * IV Lasix 20mg BID * Appreciate cardio recs * Repeat echocardiogram to assess for LVEF/valve functioning. * BEP daily, monitor renal function and lytes * Daily weights, strict I&O # A. fib/A flutter with RVR Came in with RVR up to 130s. Rate better controlled on Cardizem drip currently. At home patient is currently only on a beta magnolia for rare control. * Continue cardiac monitoring * Continue Cardizem drip at 5 cc/hr * May switch to oral Cardizem tomorrow if she continues to remain stable and echo is normal as per cardio * Cont home med Eliquis 5 mg BID * Appreciate cardio recs # Hx of colon cancer s/p hemicolectomy * Dr. Saba consulted, appreciate recs # Hx of HLD * Lipid panel in the a.m. Continue atorvastatin 10 mg daily - Heart healthy diet - Mild pain pathway - DVT prophylaxis: Eliquis 5 mg BID - Full code Problem List: 1. Hypokalemia 2. HFrEF (heart failure with reduced ejection fraction) 3. Dyspnea 4. Rapid atrial fibrillation Pain Ratin Pain Location: 0 Pain Goal: Remain pain free Pain Plan: Mild path Tomorrow's Labs & Rationales: BEP - monitor lytes and renal fx
[2016-08-12 08:03] VITALS: BP 13/80
[2016-08-12 08:13] LABS: ABSOLUTE BASOPHIL COUNT 0 /CUMM (0.0-0.2); ABSOLUTE EOSINOPHIL COUNT 0.2 /CUMM (0.0-0.7); ABSOLUTE GRANULOCYTE CT 5.6 /CUMM (1.4-6.5); ABSOLUTE LYMPH COUNT 1.7 /CUMM (1.2-3.4); ABSOLUTE MONOCYTE COUNT 0.6 /CUMM (0.10-0.60); BASOPHIL % 0.6 % (0.0-2.0); EOSINOPHIL % 2.4 % (0-5); GRANULOCYTE % 68.2 % (42.2-75.2); HEMATOCRIT 39.3 % (37-47); MEAN CORPUSCULAR HGB 33.6 PG (27.0-31.0); MEAN CORPUSCULAR VOLUME 98.9 FL (81.0-99.0); MEAN PLATELET VOLUME 8.2 FL (7.4-10.4); PLATELET COUNT 201 /CUMM (130-400); RBC DISTRIBUTION WIDTH 18.3 % (11.5-14.5); RED BLOOD CELL CT 3.98 /CUMM (4.20-5.40); WHITE BLOOD CELL COUNT 8.2 /CUMM (4.8-10.8)
[2016-08-12 08:18] LABS: PT 12.6 SEC (9.4-12.5)
--- NOTE | 2016-08-12 11:35 | PN- Cardiology ---
Subjective Subjective: The patient's feeling somewhat better today. Her respiratory status has improved. She still mows intermittent sense of mild dyspnea. He remains in atrial fibrillation with improved heart rate control on IV Cardizem. Objective Vital Signs and I&Os Vital Signs Date Time Temp Pulse Resp B/P B/P Pulse O2 O2 Flow FiO2 Mean Ox Delivery Rate 08/12 0803 97 116/60 08/12 0803 97.9 86 18 13/80 95 Nasal 2.0L Cannula 08/12 0800 Nasal 3.0L Cannula 08/12 0009 98.0 97 18 116/60 93 Nasal 2.0L Cannula 08/12 0000 Nasal 3.0L Cannula 08/11 2147 Nasal 2.5L Cannula 08/11 2048 93 112/62 08/11 1739 Nasal 3.0L Cannula 08/11 1505 86 Room Air 08/11 1247 97.9 98 20 120/74 96 Nasal 2.0L Cannula Intake & Output 08/12 1600 08/12 0800 08/12 0000 08/11 1600 08/11 0800 08/11 0000 Intake Total 120 712 Output Total 708 619 0423 Balance -380 -188 -1100 Intake, IV 52 Intake, Oral 120 660 Output, Urine 319 897 2230 Patient 173 lb 172 lb Weight Weight Chair scale Reported by Patient Measurement Method Current Medications: Current Medications Sig/Cathy Start time Last Medication Dose Route Stop Time Status Admin Acetaminophen 650 MG Q6P PRN 08/11 1215 AC PO Albuterol Sulfate 3 ML Q4P PRN 08/11 2215 AC 08/11 INH 2145 Apixaban 5 MG BID 08/11 2200 AC 08/12 PO 0803 Atorvastatin Calcium 20 MG 1700 08/11 1700 AC 08/11 PO 1857 Diltiazem HCl 0 .STK-MED ONE 08/11 1148 DC IV Diltiazem HCl 125 MG Q24H 08/11 1145 AC 08/12 Sodium Chloride 100 ML IV 1049 Furosemide 20 MG DAILY 08/12 1000 DC IV Furosemide 20 MG 0730,1630 08/11 1800 AC 08/12 IV 0803 Ipratropium [place] 2.5 ML Q4P PRN 08/11 2215 AC 08/11 INH 2145 Magnesium Oxide 400 MG ONE ONE 08/11 1500 DC 08/11 PO 08/11 1501 1525 Metoprolol Tartrate 25 MG BID 08/11 2200 AC 08/12 PO 0803 Oxycodone HCl 5 MG Q6 PRN 08/12 0815 AC PO Oxycodone HCl 10 MG Q6 PRN 08/12 0815 AC PO Oxycodone/ 1 TAB Q6P PRN 08/11 1215 DC Acetaminophen PO Oxycodone/ 2 TAB Q6P PRN 08/11 1215 DC Acetaminophen PO Potassium Chloride 20 MEQ ONCE ONE 08/12 1400 AC PO 08/12 1401 Potassium Chloride 40 MEQ ONCE ONE 08/12 1000 DC 08/12 PO 08/12 1001 1043 Potassium Chloride 0 .STK-MED ONE 08/11 1313 DC PO Potassium Chloride 40 MEQ ONCE ONE 08/11 1215 DC 08/11 PO 08/11 1216 1310 Results Last 48 Hrs of Labs/Mics: Laboratory Tests 08/12/16 0637: Anion Gap 9, Estimated GFR > 60, BUN/Creatinine Ratio 26.7 H, Magnesium 1.8, Triglycerides 245 H, Cholesterol 137, LDL Cholesterol, Calc 52 L, HDL Cholesterol 36 L, Cholesterol/HDL Ratio 4, PT 12.6 H, INR 1.20 H, CBC w Diff NO MAN DIFF REQ, RBC 3.98 L, MCV 98.9, MCH 33.6 H, RDW 18.3 H, MPV 8.2, Gran % 68.2, Lymphocytes % 21.2, Monocytes % 7.6, Eosinophils % 2.4, Basophils % 0.6, Absolute Granulocytes 5.6, Absolute Lymphocytes 1.7, Absolute Monocytes 0.6, Absolute Eosinophils 0.2, Absolute Basophils 0, PUBS MCHC 34.0 08/11/16 2115: Troponin I 0.04 08/11/16 1616: Lactic Acid 1.8 08/11/16 1513: Troponin I 0.03 08/11/16 1157: Lactic Acid 2.2 H 08/11/16 1040: Urine Color STRAW, Urine Clarity CLEAR, Urine pH 6.0, Ur Specific [place] 1.010, Urine Protein NEG, Urine Ketones NEG, Urine Nitrite NEG, Urine Bilirubin NEG, Urine Urobilinogen 0.2, Ur Leukocyte Esterase NEG, Ur Microscopic SEDIMENT EXAMINED, Urine RBC 1-3, Urine WBC RARE, Ur Epithelial Cells RARE, Urine Bacteria MOD H, Urine Hemoglobin TRACE-INTACT, Urine Glucose NEG 08/11/16 0902: Lactic Acid 2.7 H 08/11/16 0854: Anion Gap 13, Estimated GFR > 60, BUN/Creatinine Ratio 26.7 H, Glucose 168 H, Calcium 8.7, Phosphorus 5.4 H, Magnesium 1.8, Total Bilirubin 0.8, AST 49 H, ALT 40, Alkaline Phosphatase 73, Troponin I 0.03, [id number]-[id number]-Wxaozubwyxr Pept 3930 H , Total Protein 6.0 L, Albumin 3.5, Globulin 2.5, Albumin/Globulin Ratio 1.4, TSH 2.110, Free T4 1.01, PT 13.4 H, INR 1.28 H, APTT 23 L, CBC w Diff NO MAN DIFF REQ, RBC 4.37, MCV 99.2 H, MCH 33.2 H, RDW 18.5 H, MPV 7.7, Gran % 80.4 H, Lymphocytes % 15.0 L, Monocytes % 2.9, Eosinophils % 0.8, Basophils % 0.9, Absolute Granulocytes 8.1 H, Absolute Lymphocytes 1.5, Absolute Monocytes 0.3, Absolute Eosinophils 0.1, Absolute Basophils 0.1, PUBS MCHC 33.5 Assessment/Plan Assessment/Plan Assessment: 1. Coronary artery disease 2. atrial fibrillation with rapid ventricular response 3. Acute on chronic systolic heart failure 4. Colon cancer, recent chemotherapy 5. Nonsustained wide complex tachycardia/VT Recommendations: -Await follow-up echocardiogram -Continue current medications for now. -Depending on the results of the echocardiogram, the patient will be transitioned to oral medications over the next 24 hours. -If the patient remains stable, she can likely be discharged tomorrow for further evaluation and treatment as an outpatient.
--- NOTE | 2016-08-12 13:29 | PN- Student ---
Subjective Subjective: History and Physical cc : "Persistent shortness of breath" HPI: Mrs. Marx is a 71-year-old female with a PMH of HFrEF with LVEF 30-35% ( echocardiogram 07/14/2016), HTN, HLD, infrarenal AAA, CAD, A-fib with history of ventricular ectopy, colon cancer s/p right hemicolectomy (02/2016) currently undergoing chemotherapy with Dr. Houston (completed 6 rounds every 2 weeks of 5-FU) who presents with complaints of persistent/worsening shortness of breath. She reports that since her third round of chemotherapy she has been experiencing intermittent episodes of shortness of breath that has now become constant and worsening over the past few days. At this point in time, she is reporting exertional dyspnea significant enough to limit her ability to do dishes, put on clothes and walk up steps. Patient denies any chest pain, palpitations, dizziness, nausea, vomiting, diarrhea, adbominal pain or urinary changes. Past social history: Patient lives at home by herself and does not use any home health services for ADLS/IADLS. She is able to ambulate independently. She denies any alcohol use as well as any illicit drug use. Patient was a 75 pack year smoker. Past family history: Father from a "brain tumor"; Mother at 90 from "old age". Surgical History: appendectomy, hysterectomy, bilateral oophorectomy, BLADDER SX CARPAL TUNNEL SX Allergies: red dye (RASH 01/16/16) NARCOTICS (Intermediate, VOMITING 01/16/16) Home Med list Apixaban (Eliquis) 5 MG TABLET 1 TAB PO BID ANTICOAGULATION Metoprolol Tartrate 25 MG TABLET 1 TAB PO BID BP Simvastatin (Simvastatin*) 40 MG TABLET 1 TAB PO QPM DIRECTED Vital Signs Date Time Temp Pulse Resp B/P B/P Pulse O2 O2 Flow FiO2 Mean Ox Delivery Rate 08/12 0803 97 116/60 08/12 0803 97.9 86 18 80 95 Nasal 2.0L Cannula 08/12 0800 Nasal 3.0L Cannula 08/12 0009 98.0 97 18 116/60 93 Nasal 2.0L Cannula 08/12 0000 Nasal 3.0L Cannula 08/117 Nasal 2.5L Cannula 08/12 2047 93 112/62 08/11 1739 Nasal 3.0L Cannula 08/11 1505 86 Room Air Physical Exam General- Alert, Cooperative, No Acute Distress Skin No Significant Lesion, Mid abdominal incision from previous surgery well healed HEENT NCAT, PERRL, EOMI Cardiovascular Normal S1 & Normal S2, Irregularly irregular rhythm Lungs Clear to Auscultation bilaterally Abdomen Normal Bowel Sounds, Soft, No Tenderness, Increased abdominal girth Extremities No Edema, Normal Pulses Pertinent labs: WBC 10.1, H&H 14.5/43.3 platelets 231, Na 142, K+ 3.8, chloride 110, bicarbonate 19, BUN/CR 16/0.6, glucose 168 INR 1.28 Lactic acid: 2.7/2.2 ProBNP 3930 Diagnostic Data EKG Results Atrial fibrillation. Paired Ventricular premature complexes. Borderline prolonged QT interval. QTc 490 CXR Results The heart is enlarged with low lung volumes with mild interstitial prominence with probable bilateral trace pleural effusions along with basilar atelectasis. Assessment/Plan 71-year-old female with a PMH of HFrEF with LVEF 30-35% (echo 07/14/2016), HTN, HLD, infrarenal AAA, CAD, A. fib with history of ventricular ectopy, colon cancer s/p right hemicolectomy (02/2016) currently undergoing chemotherapy with Dr. Houston (completed 6 rounds every 2 weeks of 5-FU) who presents with complaints of persistent/worsening shortness of breath. Symptoms started after her third/fourth round of chemotherapy and have progressively worsened. First episode of shortness of breath waking her up from sleep on Wednesday and a second episode last night with inability to catch her breath associated w/ cyanosis & sweating. A. fib/A flutter with RVR: -Admit to telemetry for continuous cardiac monitoring. Serial EKG/troponin -Repeat echocardiogram to determine any changes in left ventricular or valvular function Acute hypoxic respiratory failure: -Incentive spirometry / Nebulizer treatment -Elevation in lactic acid likely secondary to hypoxia. Currently trending down. HFrEF with exacerbation (ProBNP 3930): -Patient is currently only on a beta-magnolia for control. Discuss with cardiology starting the patient on lisinopril/lasix/spironolactone based on cardiac function and symptoms -Maintain patient on 20 mg IV daily starting tomorrow. Monitor renal function, potassium, I&O DVT prophylaxis: Eliquis 5 mg BID Code status: Full code
[2016-08-12 15:37] VITALS: BP 110/80
--- NOTE | 2016-08-12 17:17 | Cons- Oncology ---
General Information and HPI Consulting Request Date of Consult: 08/12/16 Requested By: YULISSA MANCILLA MD Reason for Consult: colon cancer, heart failure Source of Information: patient, old records Exam Limitations: no limitations History of Present Illness: Ms. Marx is a 71-year-old female with stage IIIC adenocarcinoma of the cecum status post resection and 6 cycles of FOLFOX (last on 07/08/2016), atrial fibrillation, infrarenal AAA, CAD, and CHF of 30-35% who presented to the hospital with severe fatigue and shortness of breath. She has been having progressive shortness of breath since cycle 4 or 5. CTA was done previous and was negative for PE. Echocardiogram demonstrated new heart failure and atrial fibrillation. She was seeing Dr. Robertson to further evaluate her cardiac issue. Her therapy has been held since last dose on 07/08. She states she got more short of breath Wednesday. She could not catch her breathe. She had severe exertional dyspnea. She had no chest pain or palpitation. She called her daughter and per the patient the daughter told her she had some cyanosis in the face and lips. She denies any other symptoms. Allergies/Medications Allergies: Coded Allergies: red dye (RASH 01/16/16) Uncoded Allergies: NARCOTICS (Intermediate, VOMITING 01/16/16) Home Med List: Apixaban (Eliquis) 5 MG TABLET 1 TAB PO BID ANTICOAGULATION Metoprolol Tartrate 25 MG TABLET 1 TAB PO BID BP (Reported) Simvastatin (Simvastatin*) 40 MG TABLET 1 TAB PO QPM DIRECTED (Reported) Current Medications: Current Medications Sig/Cathy Start time Last Medication Dose Route Stop Time Status Admin Acetaminophen 650 MG Q6P PRN 08/11 1215 AC PO Albuterol Sulfate 3 ML Q4P PRN 08/11 2215 AC 08/11 INH 2145 Apixaban 5 MG BID 08/11 2200 AC 08/12 PO 0803 Atorvastatin Calcium 20 MG 1700 08/11 1700 AC 08/11 PO 1857 Diltiazem HCl 125 MG Q24H 08/11 1145 AC 08/12 Sodium Chloride 100 ML IV 1049 Furosemide 20 MG DAILY 08/12 1000 DC IV Furosemide 20 MG 0730,1630 08/11 1800 AC 08/12 IV 0803 Ipratropium [place] 2.5 ML Q4P PRN 08/11 2215 AC 08/11 INH 2145 Magnesium Chloride 64 MG ONCE ONE 08/12 1500 DC PO 08/12 1501 Metoprolol Tartrate 25 MG BID 08/11 2200 AC 08/12 PO 0803 Oxycodone HCl 5 MG Q6 PRN 08/12 0815 AC PO Oxycodone HCl 10 MG Q6 PRN 08/12 0815 AC PO Oxycodone/ 1 TAB Q6P PRN 08/11 1215 DC Acetaminophen PO Oxycodone/ 2 TAB Q6P PRN 08/11 1215 DC Acetaminophen PO Patient Medication 1 ED .STK-MED ONE 08/12 1321 DC Teaching ED 08/12 1322 Potassium Chloride 20 MEQ ONCE ONE 08/12 1400 DC PO 08/12 1401 Potassium Chloride 40 MEQ ONCE ONE 08/12 1000 DC 08/12 PO 08/12 1001 1043 Review of Systems Review of Systems Constitutional: Reports: malaise, weakness. Denies: chills, fever. EENTM: Denies: blurred vision, double vision, throat pain. Cardiovascular: Reports: edema, peripheral edema, syncope. Denies: chest pain, palpitations. Respiratory: Reports: short of breath. Denies: cough, hemoptysis, wheezing. GI: Reports: distention. Denies: abdominal pain, constipation, diarrhea. Genitourinary: Denies: dysuria. Musculoskeletal: Reports: joint pain, muscle pain. Denies: back pain. Skin: Reports: change in skin color. Neurological/Psychological: Denies: anxiety, confusion, depressed. Hematologic/Endocrine: Denies: bruising, bleeding. Immunologic/Allergic: Denies: see HPI, splenectomy, lymphadenopathy. All Other Systems: Reviewed and Negative Past History Travel History Traveled to [place] past 21 day No Medical History Blood Transfusion Hx: No Neurological: NONE EENT: NONE Cardiovascular: aortic aneurysm, hypertension, hyperlipidemia, syncope Respiratory: NONE Gastrointestinal: NONE Hepatic: NONE Renal: NONE Musculoskeletal: osteoarthritis Psychiatric: NONE Endocrine: NONE Blood Disorders: NONE Cancer(s): colon/rectal cancer (stage IIIC) CORN PICKER/Reproductive: NONE Surgical History Surgical History: appendectomy, colon resection, hysterectomy, bilateral oophorectomy BLADDER SX CARPAL TUNNEL SX Family History Relations & Conditions If Any: FATHER Malignant neoplasm of brain Psychosocial History Where Do You Live? Home Who Do You Live With? self Services at Home: None Smoking Status: Former Smoker ETOH Use: denies use Illicit Drug Use: denies illicit drug use Functional Ability ADLs Independent: dressing, eating, toileting, bathing. Ambulation: independent IADLs Independent: shopping, housework, finances, food prep, telephone, transportation , medication admin. Exam & Diagnostic Data Vital Signs and I&O Vital Signs Date Time Temp Pulse Resp B/P B/P Pulse O2 O2 Flow FiO2 Mean Ox Delivery Rate 08/12 1537 98.2 90 20 110/80 94 Nasal 2.0L Cannula 08/12 0803 97 116/60 08/12 0803 97.9 86 18 13/80 95 Nasal 2.0L Cannula 08/12 0800 Nasal 3.0L Cannula 08/12 0009 98.0 97 18 116/60 93 Nasal 2.0L Cannula 08/12 0000 Nasal 3.0L Cannula 08/11 2147 Nasal 2.5L Cannula 08/11 2048 93 112/62 08/11 1739 Nasal 3.0L Cannula Intake & Output 08/12 1600 08/12 0800 08/12 0000 Intake Total 724 120 712 Output Total 500 500 900 Balance 224 -380 -188 Intake, IV 64 52 Intake, Oral 660 120 660 Output, Urine 500 500 900 Patient 78.245 kg Weight Weight Chair scale Measurement Method Physical Exam General Appearance: well developed/nourished, no apparent distress, alert, awake , comfortable, obese Head: atraumatic Eyes: Bilateral: PERRL. Ears, Nose, Throat: normal pharynx Respiratory: normal breath sounds, chest non-tender, decreased breath sounds ( bases), crackles (bases) Cardiovascular: tachycardia, irregularly irregular Gastrointestinal: normal bowel sounds, soft, non-tender, no organomegaly Extremities: normal inspection Neurologic/Psych: awake, alert, oriented x 3 Skin: intact, normal color, warm/dry Lymphatic: no anterior cervical rosa Last 48 Hours of Lab Results: Laboratory Tests 08/12 08/11 08/11 08/11 0637 2115 1616 1513 Chemistry Sodium (137 - 145 mmol/L) 141 Potassium (3.5 - 5.1 mmol/L) 3.4 L Chloride (98 - 107 mmol/L) 106 Carbon Dioxide (22 - 30 mmol/L) 27 Anion Gap (5 - 16) 9 BUN (7 - 17 mg/dL) 16 Creatinine (0.5 - 1.0 mg/dL) 0.6 Estimated GFR (>60 ml/min) > 60 BUN/Creatinine Ratio (7 - 25 %) 26.7 H Lactic Acid (0.7 - 2.1 mmol/L) 1.8 Magnesium (1.6 - 2.3 mg/dL) 1.8 Troponin I (< 0.11 ng/ml) 0.04 0.03 Triglycerides (<150 mg/dL) 245 H Cholesterol (<200 MG/DL) 137 LDL Cholesterol, Calc (65 - 129 mg/dL) 52 L HDL Cholesterol (40 - 60 mg/dL) 36 L Cholesterol/HDL Ratio (0.00 - 4.23 %) 4 Coagulation PT (9.4 - 12.5 SEC) 12.6 H INR (0.90 - 1.19) 1.20 H Hematology CBC w Diff NO MAN DIFF REQ WBC (4.8 - 10.8 /CUMM) 8.2 RBC (4.20 - 5.40 /CUMM) 3.98 L Hgb (12.0 - 16.0 G/DL) 13.4 Hct (37 - 47 %) 39.3 MCV (81.0 - 99.0 FL) 98.9 MCH (27.0 - 31.0 PG) 33.6 H RDW (11.5 - 14.5 %) 18.3 H Plt Count (130 - 400 /CUMM) 201 MPV (7.4 - 10.4 FL) 8.2 Gran % (42.2 - 75.2 %) 68.2 Lymphocytes % (20.5 - 51.1 %) 21.2 Monocytes % (1.7 - 9.3 %) 7.6 Eosinophils % (0 - 5 %) 2.4 Basophils % (0.0 - 2.0 %) 0.6 Absolute Granulocytes (1.4 - 6.5 /CUMM) 5.6 Absolute Lymphocytes (1.2 - 3.4 /CUMM) 1.7 Absolute Monocytes (0.10 - 0.60 /CUMM) 0.6 Absolute Eosinophils (0.0 - 0.7 /CUMM) 0.2 Absolute Basophils (0.0 - 0.2 /CUMM) 0 PUBS MCHC (33.0 - 37.0 G/DL) 34.0 08/11 08/11 08/11 1157 1040 0902 Chemistry Lactic Acid (0.7 - 2.1 mmol/L) 2.2 H 2.7 H Urines Urine Color (YEL,AMB,STR) STRAW Urine Clarity (CLEAR) CLEAR Urine pH (5.0 - 8.0) 6.0 Ur Specific [place] (1.001 - 1.035) 1.010 Urine Protein (NEG,<30 MG/DL) NEG Urine Ketones (NEG) NEG Urine Nitrite (NEG) NEG Urine Bilirubin (NEG) NEG Urine Urobilinogen (0.1 - 1.0 EU/dl) 0.2 Ur Leukocyte Esterase (NEG) NEG Ur Microscopic SEDIMENT EXAMINED Urine RBC (0 - 5 /HPF) 1-3 Urine WBC (0 - 2 /HPF) RARE Ur Epithelial Cells (NONE,FEW) RARE Urine Bacteria (NEG/NONE) MOD H Urine Hemoglobin (NEG) TRACE-INTACT Urine Glucose (N MG/DL) NEG 08/11 0854 Chemistry Sodium (137 - 145 mmol/L) 142 Potassium (3.5 - 5.1 mmol/L) 3.8 Chloride (98 - 107 mmol/L) 110 H Carbon Dioxide (22 - 30 mmol/L) 19 L Anion Gap (5 - 16) 13 BUN (7 - 17 mg/dL) 16 Creatinine (0.5 - 1.0 mg/dL) 0.6 Estimated GFR (>60 ml/min) > 60 BUN/Creatinine Ratio (7 - 25 %) 26.7 H Glucose (65 - 99 mg/dL) 168 H Calcium (8.4 - 10.2 mg/dL) 8.7 Phosphorus (2.5 - 4.5 mg/dL) 5.4 H Magnesium (1.6 - 2.3 mg/dL) 1.8 Total Bilirubin (0.2 - 1.3 mg/dL) 0.8 AST (14 - 36 U/L) 49 H ALT (9 - 52 U/L) 40 Alkaline Phosphatase (<127 U/L) 73 Troponin I (< 0.11 ng/ml) 0.03 [id number] Pept (<125 pg/mL) 3930 H Total Protein (6.3 - 8.2 g/dL) 6.0 L Albumin (3.5 - 5.0 g/dL) 3.5 Globulin (1.9 - 4.2 gm/dL) 2.5 Albumin/Globulin Ratio (1.1 - 2.2 %) 1.4 TSH (0.270 - 4.200 uIU/mL) 2.110 Free T4 (0.78 - 2.44 ng/dL) 1.01 Coagulation PT (9.4 - 12.5 SEC) 13.4 H INR (0.90 - 1.19) 1.28 H APTT (25 - 37 SEC) 23 L Hematology CBC w Diff NO MAN DIFF REQ WBC (4.8 - 10.8 /CUMM) 10.1 RBC (4.20 - 5.40 /CUMM) 4.37 Hgb (12.0 - 16.0 G/DL) 14.5 Hct (37 - 47 %) 43.3 MCV (81.0 - 99.0 FL) 99.2 H MCH (27.0 - 31.0 PG) 33.2 H RDW (11.5 - 14.5 %) 18.5 H Plt Count (130 - 400 /CUMM) 231 MPV (7.4 - 10.4 FL) 7.7 Gran % (42.2 - 75.2 %) 80.4 H Lymphocytes % (20.5 - 51.1 %) 15.0 L Monocytes % (1.7 - 9.3 %) 2.9 Eosinophils % (0 - 5 %) 0.8 Basophils % (0.0 - 2.0 %) 0.9 Absolute Granulocytes (1.4 - 6.5 /CUMM) 8.1 H Absolute Lymphocytes (1.2 - 3.4 /CUMM) 1.5 Absolute Monocytes (0.10 - 0.60 /CUMM) 0.3 Absolute Eosinophils (0.0 - 0.7 /CUMM) 0.1 Absolute Basophils (0.0 - 0.2 /CUMM) 0.1 PUBS MCHC (33.0 - 37.0 G/DL) 33.5 Imaging/Other Studies: CXR 08/11/2016: The heart is enlarged with low lung volumes with mild interstitial prominence with probable bilateral trace pleural effusions along with basilar atelectasis. Assessment/Plan Assessment: Ms. Marx is a 71-year-old female with history of stage IIIC adenocarcinoma of the cecum on FOLFOX (6 cycles), atrial fibrillation, CAD, CHF who presents for worsening shortness of breath. She had oxygen saturation of about 86% on RA. She is now improved on 3L NC. She was noted to have atrial fibrillation with RVR. She was treated with Cardizem drip and given furosemide for CHF exacerbation. Her new EF decrease is concerning for recent ID or atrial fibrillation. Her chemotherapy is FOLFOX and was last given in 07/08/2016. She continues to have decreased functional status after 6 cycles. She does not have neuropathy or other sympotom besides fatigue and dyspnea. 5-FU infusion has been reported to cause cardiac ischemia, cardiac arrhythmia, and ventricular ectomy. Heart failure would be rare and less likely cause. Due to ther symptoms, chemotherapy has been held. This will be held until she is cleared to start again. She has received 6 of 12 cycles. This may be enough for her at the moment. She will need to be monitored very closely if she is off it completely. Cardiology is setitng patient and apprepriate their recommendations. Recommendations: 1. Cardiac work up as per primary and cardiology 2. Holding adjuvant chemotherapy 3. Follow up as outpatient on 08/19/2016 Problem List: 1. CHF (congestive heart failure) 2. S/P colon resection 3. Rapid atrial fibrillation 4. Colon cancer Other Findings/Comments: Please call [phone] with any questions or concerns. Consult Acknowledgment - Thank you for your consult request.
[2016-08-12 22:00] VITALS: BP 120/70
--- NOTE | 2016-08-13 06:17 | PN- Housestaff ---
ELIER URIAS,DOUGLAS 08/13/16 0617: Subjective Follow-up For: Rapid Afib CHF exacerbation Tele-Events Since Last Visit: Afib/aflutter with HR in 70-120s PVCs, coulets, bigem triplets 3 beat vtach at :620AM Subjective: Patient seen and examined at bedside. No events reported overnight. Resting comfortably in bed with no complaints. Patient reports feeling well but still requires oxygen. She tried to come off oxygen yest and felt like she was going to get a panic attack. Willing to try something for anxiety for oxygen taper. Denies any chest discomfort, palpitations, dyspnea at rest, lightheadedness, dizziness, abdominal pain, n/v/c/d. Walking to the bathroom on her own. Satting well on 2.5 liters of oxygen. Review of Systems Constitutional: Reports: see HPI. Objective Last 24 Hrs of Vital Signs/I&O Vital Signs Date Time Temp Pulse Resp B/P B/P Pulse O2 O2 Flow FiO2 Mean Ox Delivery Rate 08/13 0000 93 Nasal 2.0L Cannula 08/120 98.9 93 20 120/70 94 Nasal 3.0L Cannula 08/12 2149 93 120/70 08/12 2134 95 Nasal 2.5L Cannula 08/12 1537 98.2 90 20 110/80 94 Nasal 2.0L Cannula Intake & Output 08/13 1600 08/13 0800 08/13 0000 Intake Total 872 Output Total 1000 Balance -128 Intake, IV 32 Intake, Oral 840 Output, Urine 1000 Patient 76.204 kg Weight Weight Chair scale Measurement Method Physical Exam General Appearance: Alert, Oriented X3, Cooperative, No Acute Distress Other Physical Findings: Skin No Significant Lesion, Mid abdominal incision from previous surgery well healed HEENT EOMI, Mucous Membr. moist/pink Cardiovascular Normal S1, Normal S2, Irregularly irregular rhythm Lungs Clear to Auscultation, Normal Air Movement Abdomen Normal Bowel Sounds, Soft, No Tenderness, Increased abdominal girth Extremities No Edema, Normal Pulses Vascular Pulses Symmetrical Current Medications: Current Medications Sig/Cathy Start time Last Medication Dose Route Stop Time Status Admin Acetaminophen 650 MG .STK-MED ONE 08/12 2148 DC PO 08/12 2149 Acetaminophen 650 MG Q6P PRN 08/11 1215 AC 08/12 PO 2148 Albuterol Sulfate 3 ML Q4P PRN 08/11 2214 AC 08/11 INH 2145 Alprazolam 0.25 MG Q12P PRN 08/13 0800 UNVr PO 08/20 0759 Apixaban 5 MG BID 08/11 2200 AC 08/12 PO 2148 Atorvastatin Calcium 20 MG 1700 08/11 1700 AC 08/12 PO 1728 Diltiazem HCl 125 MG Q24H 08/11 1145 AC 08/12 Sodium Chloride 100 ML IV 1049 Furosemide 20 MG 0730,1630 08/11 1800 AC 08/13 IV 0657 Ipratropium [place] 2.5 ML Q4P PRN 08/11 2215 AC 08/11 INH 2145 Lidocaine 1 PAT DAILY 08/13 1000 UNVr EXT Magnesium Chloride 64 MG ONCE ONE 08/12 1500 DC 08/12 PO 08/12 1501 1728 Metoprolol Tartrate 25 MG BID 08/11 2200 AC 08/12 PO 2149 Oxycodone HCl 5 MG Q6 PRN 08/12 0815 AC PO Oxycodone HCl 10 MG Q6 PRN 08/12 0815 AC PO Oxycodone/ 1 TAB Q6P PRN 08/11 1215 DC Acetaminophen PO Oxycodone/ 2 TAB Q6P PRN 08/11 1215 DC Acetaminophen PO Patient Medication 1 ED .STK-MED ONE 08/12 1321 DC Teaching ED 08/12 1322 Potassium Chloride 20 MEQ ONCE ONE 08/12 1400 DC 08/12 PO 08/12 1401 1728 Potassium Chloride 40 MEQ ONCE ONE 08/12 1000 DC 08/12 PO 08/12 1001 1043 Last 24 Hrs of Lab/Joce Results Last 24 Hrs of Labs/Mics: Laboratory Tests 08/13/16 0620: Sodium Pending, Potassium Pending, Chloride Pending, Carbon Dioxide Pending, Anion Gap Pending, BUN Pending, Creatinine Pending, BUN/Creatinine Ratio Pending , Magnesium Pending Assessment/Plan Assessment: 71-year-old lady with a PMH of HFrEF with LVEF 30-35% (echocardiogram 07/14/2016) , HTN, HLD, infrarenal AAA, CAD, A. fib with history of ventricular ectopy, colon cancer s/p right hemicolectomy (02/2016) currently undergoing chemotherapy with Dr. Houston (completed 6 rounds every 2 weeks of 5-FU) who presents with complaints of persistent/worsening shortness of breath. Symptoms started after her third/fourth round of chemotherapy and have progressively worsened. First episode of shortness of breath waking her up from sleep on Wednesday and a second episode last night with inability to catch her breath associated cyanosis, sweating. # Acute hypoxic respiratory failure: 86% on RA, 96% on NRB on arrival. Requiring 3 liters of oxygen on admission. Pt does not use any oxygen at home. Still requiring oxygen due to anxiety * Vitals per protocol * Oxygen supplement to maintain O2 sat above 92% * TRC neb treatment as needed * Incentive spirometry, DuoNeb * Management as per plans for HF * Psych consulted for anxiety, appreciate recs # HFrEF with exacerbation: ProBNP 3930. CXR on admission - enlarged with low lung volumes with mild interstitial prominence with probable bilateral trace pleural effusions along with basilar atelectasis. Patient has had a decline in cardiac output from 50/55 % in February 2016 down to 30/35% in June 2016. This could be secondary to her atrial fibrillation. At this time unclear/unlikely to be due to the 5- fluorouracil. * IV Lasix 20mg BID * Appreciate cardio recs * Repeat echocardiogram to assess for LVEF/valve functioning. * BEP daily, monitor renal function and lytes * Daily weights, strict I&O # A. fib/A flutter with RVR Came in with RVR up to 130s. Rate better controlled on Cardizem drip currently. At home patient is currently only on a beta magnolia for rare control. * Continue cardiac monitoring * Switch Cardizem drip at 5 cc/hr to Cardizem CD 120mg QD * Increase home med metoprolol 25mg PO BID to 37.5mg PO BID * Cont home med Eliquis 5 mg BID * Appreciate cardio recs # Hx of colon cancer s/p hemicolectomy * Dr. Saba consulted, appreciate recs # Hx of HLD * Continue home med atorvastatin 10 mg daily # Anxiety * Appreciate psych recs * Start Lexapro 10mg PO QD * May give low dose Xanax acutely for anxiety/panic attack - Heart healthy diet - Mild pain pathway - DVT prophylaxis: Eliquis 5 mg BID - Full code Problem List: 1. Colon cancer 2. Hypokalemia 3. HFrEF (heart failure with reduced ejection fraction) 4. Dyspnea 5. Rapid atrial fibrillation Pain Ratin Pain Location: 0 Pain Goal: Remain pain free Pain Plan: Mild pathway Tomorrow's Labs & Rationales: BEP - monitor renal fx YULISSA MANCILLA MD 08/13/16 1437: Attending MD Review Statement Attending Statement Attending MD Statement: examined this patient, discuss w/resident/PA/REEL CUTTER, agreed w/resident/PA/REEL CUTTER, reviewed EMR data (avail), discussed with nursing, amended to note Attending Assessment/Plan: The patient was seen and discussed with house staff. Agree with plan of care as outlined. Appreciate Psychiatry input regarding anxiety. Will taper oxygen and check ambulatory pulse oximetry tomorrow. Cardiology to do eventual stress test as outpatient. ECHO results noted.
--- NOTE | 2016-08-13 06:20 | Patient Discharge Instructions ---
Discharge Instructions General Discharge Information You were seen/treated for: Heart failure exacerbation Rapid atrial fibrillation Special Instructions: Please follow up with your deck supervisor Dr. Robertson in a week and your PCP in 1- 2 weeks. Please follow up with Dr. Saba on 08/19. "If you decide you would like to seek mental health care please on a regular ongoing basis please call [phone] to arrange for intake appointment at [facility]." Diet Continue normal diet: Yes Activity Full Activity/No Limits: Yes (as tolerated) Acute Coronary Syndrome Inclusion Criteria At DC or during hospital stay patient has or had the following: ACS DIAGNOSIS No Discharge Core Measures Meds if any: Prescribed or Continued at Discharge Meds if any: NOT Prescribed or Continued at Discharge Congestive Heart Failure Inclusion Criteria At DC or during hospital stay patient has or had the following: CHF DIAGNOSIS No Discharge Core Measures Meds if any: Prescribed or Continued at Discharge Meds if any: NOT Prescribed or Continued at Discharge Cerebrovascular accident Inclusion Criteria At DC or during hospital stay patient has or had the following: CVA/TIA Diagnosis No Discharge Core Measures Meds if any: Prescribed or Continued at Discharge Meds if any: NOT Prescribed or Continued at Discharge Venous thromboembolism Inclusion Criteria VTE Diagnosis No VTE Type NONE VTE Confirmed by (Test) NONE Discharge Core Measures - Per Current guidelines, there needs to be overlap - treatment for the first 5 days of Warfarin therapy. - If discharged on Warfarin prior to 5 days of - overlap therapy, the patient will need to be - assessed for post discharge needs including - *Post discharge parental anticoagulation - *Warfarin and/or parental anticoagulation education - *Follow up date to check INR post discharge At least 5 days overlap therapy as Inpatient No Meds if any: Prescribed or Continued at Discharge Note: Overlap Therapy is Warfarin and Anticoagulant Meds if any: NOT Prescribed or Continued at Discharge
[2016-08-13 08:17] VITALS: BP 100/72
--- NOTE | 2016-08-13 10:21 | Cons- Psychiatry ---
Psychiatric Consult Date of Consult: 08/13/16 Reason for Consult: "anxiety" Entered by Dr. Valencia De Jesus Attending History of Present Illness: Identifying Info: 71-year-old female presents to [facility] emergency department on 08/11/2016 with chief complaint of shortness of breath. Subsequently admitted to medicine with acute hypoxic respiratory failure due to CHF exacerbation. CC: "I guess I almost ." HPI: On entering patient's room she introduces herself as "Kesha the coward." Patient endorses a long history of worry. She states " I have always been an anxious person, especially when it came to new things or things I wasn't sure about... I think I inherited that from my father." She does not feel her anxiety has ever interfered with her functioning in the past but it has made her quite uncomfortable. Patient reports that in May of this year she began having feelings of shortness of breath and "not feeling like myself." These feelings are reported to have gotten progressively worse. In the the lithography contact worker hours of the of this month the patient was awoken by the sensation of inability to breathe. At that time she called out for her granddaughter who lives on the floor above her for help and she started to hyperventilate. At that time she feared she was going to . In the past she has typically been able to control worry or anxiety well with deep breathing exercises but on this occasion she was unable to catch her breath. Today she endorses fear related to coming off oxygen because she is anxious she will not be able to catch her breath and again experience the sensation she did the day she was hospitalized. She is willing to try psychopharmaceutical interventions at this time. Per nursing report patient has been nervous. She has been through a lot medically and is quite anxious related to weaning off of oxygen. PMH: Please see the H&P for a complete listing HFrEF with LVEF 30-35% (echocardiogram 07/14/2016), HTN, HLD, infrarenal AAA, CAD , A. fib with history of ventricular ectopy, colon cancer s/p right hemicolectomy (02/2016) currently undergoing chemotherapy with Dr. Houston ( completed 6 rounds every 2 weeks of 5-FU) Past Psych History: -Outpatient Patient saw unnamed therapist several years ago when she was going through divorce -Inpatient None Family Psych History: Father - unspecified anxiety disorder Ex- - MDD Substance History Denies ETOH or other substances 50 year smoker - no tobacco use x1 year Family Substance History: Unobtained Social: . [place] mostly lived in [place]. She has 3 adult children. She lives in an apartment below her grandson and his who she calls her granddaughter. 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 Abuse/Trauma: Unobtained Current Home Psychotropic Medications: None Current Hospital Psychotropic Medications: None Allergies: Coded Allergies: red dye (RASH 01/16/16) Uncoded Allergies: NARCOTICS (Intermediate, VOMITING 01/16/16) Current Medications: Current Medications Sig/Cathy Start time Last Medication Dose Route Stop Time Status Admin Acetaminophen 650 MG .STK-MED ONE 08/12 214 DC PO 08/12 2150 Acetaminophen 650 MG Q6P PRN 08/11 1215 AC 08/12 PO 2149 Albuterol Sulfate 3 ML Q4P PRN 08/11 2215 AC 08/11 INH 2145 Alprazolam 0.25 MG Q12P PRN 08/13 0800 DC PO 08/20 0759 Apixaban 5 MG BID 08/11 2200 AC 08/13 PO 0915 Atorvastatin Calcium 20 MG 1700 08/11 1700 AC 08/12 PO 1728 Diltiazem HCl 120 MG DAILY 08/13 1000 AC 08/13 PO 1040 Diltiazem HCl 125 MG Q24H 08/11 1145 DC 08/13 Sodium Chloride 100 ML IV 0806 Furosemide 20 MG 0730,1630 08/11 1800 AC 08/13 IV 0657 Ipratropium [place] 2.5 ML Q4P PRN 08/11 2215 AC 08/11 INH 2145 Lidocaine 1 PAT DAILY 08/13 1000 DC EXT Lidocaine 1 PAT DAILY NEEDED PRN 08/13 0845 AC EXT Magnesium Chloride 64 MG ONCE ONE 08/13 0845 DC 08/13 PO 08/13 0846 0916 Magnesium Chloride 64 MG ONCE ONE 08/12 1500 DC 08/12 PO 08/12 1501 1728 Metoprolol Tartrate 37.5 MG BID 08/13 1000 AC 08/13 PO 1040 Metoprolol Tartrate 25 MG BID 08/11 2200 DC 08/12 PO 2149 Oxycodone HCl 5 MG Q6 PRN 08/12 0815 AC PO Oxycodone HCl 10 MG Q6 PRN 08/12 0815 AC PO Patient Medication 1 ED .STK-MED ONE 08/12 1321 DC Teaching ED 08/12 1322 Potassium Chloride 10 MEQ ONCE ONE 08/13 0845 DC 08/13 PO 08/13 0846 1040 Potassium Chloride 20 MEQ ONCE ONE 08/12 1400 DC 08/12 PO 08/12 1401 1728 Past History Past Medical History Neurological: NONE EENT: NONE Cardiovascular: aortic aneurysm, hypertension, hyperlipidemia, syncope Respiratory: NONE Gastrointestinal: NONE Hepatic: NONE Renal: NONE Musculoskeletal: osteoarthritis Psychiatric: NONE Endocrine: NONE Blood Disorders: NONE Cancer(s): colon/rectal cancer (stage IIIC) 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 Past Surgical History Surgical History: appendectomy, colon resection, hysterectomy, bilateral oophorectomy BLADDER SX CARPAL TUNNEL SX Psychosocial History Strengths/Capabilities: Supportive family, treatment motivated Physical Limitations (Interventions): Multiple medical problems Psychiatric Treatment History Psych Treatment Psychiatric Treatment Yes (as above) Diagnosis: none Risk Factors: chronic/serious med cond., high anxiety/distress, lives alone Substance Use/Abuse History Drug Use/Abuse Substances Used/Abused No Substance Abuse Treatment Substance Abuse Treatment Past Substance Abuse [place] No Assessment/Plan Mental Status Mental Status Exam: Mental Status Exam Presentation/Appearance: Calm. Cooperative with evaluation. Hospital garb. Well -groomed. Orientation: x4 Sensorium: Awake and alert Eye contact: Appropriate Affect: Full range, congruent Mood: "Usually pretty good" Depression: Denies Anxiety: 06/29 Thought Content: - Denies SI/HI, AH/VH, PI. States and also believes they will not kill themselves. - Denies Hopeless/Helpless Thoughts Thought Process: Linear Associations: Appropriate Speech: WNL Judgment: Intact Insight: Intact Cognition: Memory: Grossly intact, endorses short term issues Attention/Concentration: Grossly intact Fund of Knowledge: Adequate Abstractions:Did not assess MMSE: Did not assess Brief ROS Gait: Did not observe Sleep: Adequate Appetite: Adequate Energy: Adequate IADLs/ADLs: Independent Lab Results: Laboratory Tests 08/13/16 0620: Anion Gap 9, Estimated GFR > 60, BUN/Creatinine Ratio 30.0 H, Magnesium 1.9 08/12/16 0637: Anion Gap 9, Estimated GFR > 60, BUN/Creatinine Ratio 26.7 H, Magnesium 1.8, Triglycerides 245 H, Cholesterol 137, LDL Cholesterol, Calc 52 L, HDL Cholesterol 36 L, Cholesterol/HDL Ratio 4, PT 12.6 H, INR 1.20 H, CBC w Diff NO MAN DIFF REQ, RBC 3.98 L, MCV 98.9, MCH 33.6 H, RDW 18.3 H, MPV 8.2, Gran % 68.2, Lymphocytes % 21.2, Monocytes % 7.6, Eosinophils % 2.4, Basophils % 0.6, Absolute Granulocytes 5.6, Absolute Lymphocytes 1.7, Absolute Monocytes 0.6, Absolute Eosinophils 0.2, Absolute Basophils 0, PUBS MCHC 34.0 08/11/16 2115: Troponin I 0.04 08/11/16 1616: Lactic Acid 1.8 08/11/16 1513: Troponin I 0.03 08/11/16 1157: Lactic Acid 2.2 H 08/11/16 1040: Urine Color STRAW, Urine Clarity CLEAR, Urine pH 6.0, Ur Specific [place] 1.010, Urine Protein NEG, Urine Ketones NEG, Urine Nitrite NEG, Urine Bilirubin NEG, Urine Urobilinogen 0.2, Ur Leukocyte Esterase NEG, Ur Microscopic SEDIMENT EXAMINED, Urine RBC 1-3, Urine WBC RARE, Ur Epithelial Cells RARE, Urine Bacteria MOD H, Urine Hemoglobin TRACE-INTACT, Urine Glucose NEG 08/11/16 0902: Lactic Acid 2.7 H 08/11/16 0854: Anion Gap 13, Estimated GFR > 60, BUN/Creatinine Ratio 26.7 H, Glucose 168 H, Calcium 8.7, Phosphorus 5.4 H, Magnesium 1.8, Total Bilirubin 0.8, AST 49 H, ALT 40, Alkaline Phosphatase 73, Troponin I 0.03, Zxr-H-Poxhrrurmvs Pept 3930 H , Total Protein 6.0 L, Albumin 3.5, Globulin 2.5, Albumin/Globulin Ratio 1.4, TSH 2.110, Free T4 1.01, PT 13.4 H, INR 1.28 H, APTT 23 L, CBC w Diff NO MAN DIFF REQ, RBC 4.37, MCV 99.2 H, MCH 33.2 H, RDW 18.5 H, MPV 7.7, Gran % 80.4 H, Lymphocytes % 15.0 L, Monocytes % 2.9, Eosinophils % 0.8, Basophils % 0.9, Absolute Granulocytes 8.1 H, Absolute Lymphocytes 1.5, Absolute Monocytes 0.3, Absolute Eosinophils 0.1, Absolute Basophils 0.1, PUBS MCHC 33.5 Diffential Diagnosis: Anxiety disorder due to another medical condition versus generalized anxiety disorder Impression: 71-year-old female presents with persistent and worsening shortness of breath. She endorses a long history of anxiety problems that have been compounded with recent breathing issues and likely contributing to them as well. She would likely benefit from psychotropic medication as well as therapy. At present she is agreeable to medication. Provisional Treatment Plan: 1. Please order Zoloft 25 mg PO daily. Plan to increase to 50mg daily on . 2. Please order gabapentin 100mg PO BID PRN anxiety (off label use). Other anxiolytic PRN medication could be considered however benzodiazepines may decrease respiratory drive, hydroxyzine has some cardiac risk, off label use of low-dose atypical antipsychotics carry cardiac risk, and off label use of beta blockers and alpha agonists could interfere with current cardiac regimen. 3. Patient would like to consider seeking mental health treatment on an ongoing basis. Please include the following in her discharge instructions: "If you decide you would like to seek mental health care please on a regular ongoing basis please call [phone] to arrange for intake appointment at [facility]." 4. Patient to utilize deep breathing and grounding exercises as discussed during evaluation today. 5. Agree with plan for her life alert system to help patient feel more safe when alone in her apartment. Thank you for including psychiatry in this case, we will continue to follow. A total of 60 minutes was spent with the patient with more than 50% of the time spent in counseling and/or coordination of care.
--- NOTE | 2016-08-13 11:58 | PN- Oncology ---
Subjective Subjective: She feels well. Breathing is the same. She is still on 3L NC. She has no fever or chills. She denies any new pain. Review of Systems Constitutional: Denies: chills, fever. Cardiovascular: Reports: orthopena, palpitations. Denies: chest pain, peripheral edema. Respiratory: Reports: short of breath. Denies: cough. Gastrointestinal: Reports: distention. Denies: abdominal pain. Genitourinary: Denies: dysuria. Musculoskeletal: Denies: back pain. Neurological/Psychological: Denies: confusion. Hematologic/Endocrine: Denies: bruising, bleeding. Immunologic/Allergic: Denies: splenectomy, lymphadenopathy. All Other Systems: Reviewed and Negative Objective Vital Signs and I&Os Vital Signs Date Time Temp Pulse Resp B/P B/P Pulse O2 O2 Flow FiO2 Mean Ox Delivery Rate 08/13 1040 92 100/50 08/13 1037 97 Nasal 2.5L Cannula 08/13 0817 98.0 98 20 100/72 95 Nasal 3.0L Cannula 08/13 0800 95 Nasal 3.0L Cannula 08/13 0000 93 Nasal 2.0L Cannula 08/12 2200 98.9 93 20 120/70 94 Nasal 3.0L Cannula 08/12 2149 93 120/70 08/12 2134 95 Nasal 2.5L Cannula 08/12 1537 98.2 90 20 110/80 94 Nasal 2.0L Cannula Intake & Output 08/13 1600 08/13 0800 08/13 0000 08/12 1600 08/12 0800 08/12 0000 Intake Total 300 200 872 724 120 712 Output Total 154 423 9257 500 500 900 Balance -200 -500 -128 224 -380 -188 Intake, IV 32 64 52 Intake, Oral 300 200 840 660 120 660 Output, Urine 359 636 6131 500 500 900 Patient 76.204 kg 78.245 kg Weight Weight Chair scale Chair scale Measurement Method Physical Exam: General Appearance: well developed/nourished, no apparent distress, alert, awake , comfortable, obese Respiratory: normal breath sounds, chest non-tender, decreased breath sounds ( bases), crackles (bases) Cardiovascular: tachycardia, irregularly irregular Gastrointestinal: normal bowel sounds, soft, non-tender, no organomegaly Extremities: normal inspection Neurologic/Psych: awake, alert, oriented x 3 Skin: intact, normal color, warm/dry Lymphatic: no anterior cervical rosa Current Medications: Current Medications Sig/Cathy Start time Last Medication Dose Route Stop Time Status Admin Acetaminophen 650 MG .STK-MED ONE 08/12 2149 DC PO 08/12 2150 Acetaminophen 650 MG Q6P PRN 08/11 1215 AC 08/12 PO 2149 Albuterol Sulfate 3 ML Q4P PRN 08/11 2215 AC 08/11 INH 2145 Alprazolam 0.25 MG Q12P PRN 08/13 0800 DC PO 08/20 0759 Apixaban 5 MG BID 08/11 2200 AC 08/13 PO 0915 Atorvastatin Calcium 20 MG 1700 08/11 1700 AC 08/12 PO 1728 Diltiazem HCl 120 MG DAILY 08/13 1000 AC 08/13 PO 1040 Diltiazem HCl 125 MG Q24H 08/11 1145 DC 08/13 Sodium Chloride 100 ML IV 0806 Furosemide 20 MG 0730,1630 08/11 1800 AC 08/13 IV 0657 Ipratropium [place] 2.5 ML Q4P PRN 08/11 2215 AC 08/11 INH 2145 Lidocaine 1 PAT DAILY 08/13 1000 DC EXT Lidocaine 1 PAT DAILY NEEDED PRN 08/13 0845 AC EXT Magnesium Chloride 64 MG ONCE ONE 08/13 0845 DC 08/13 PO 08/13 0846 0916 Magnesium Chloride 64 MG ONCE ONE 08/12 1500 DC 08/12 PO 08/12 1501 1728 Metoprolol Tartrate 37.5 MG BID 08/13 1000 AC 08/13 PO 1040 Metoprolol Tartrate 25 MG BID 08/11 2200 DC 08/12 PO 2149 Oxycodone HCl 5 MG Q6 PRN 08/12 0815 AC PO Oxycodone HCl 10 MG Q6 PRN 08/12 0815 AC PO Patient Medication 1 ED .STK-MED ONE 08/12 1321 DC Teaching ED 08/12 1322 Potassium Chloride 10 MEQ ONCE ONE 08/13 0845 DC 08/13 PO 08/13 0846 1040 Potassium Chloride 20 MEQ ONCE ONE 08/12 1400 DC 08/12 PO 08/12 1401 1728 Results Last 24 Hours of Lab Results: Laboratory Tests 08/13 0620 Chemistry Sodium (137 - 145 mmol/L) 142 Potassium (3.5 - 5.1 mmol/L) 3.9 Chloride (98 - 107 mmol/L) 104 Carbon Dioxide (22 - 30 mmol/L) 29 Anion Gap (5 - 16) 9 BUN (7 - 17 mg/dL) 18 H Creatinine (0.5 - 1.0 mg/dL) 0.6 Estimated GFR (>60 ml/min) > 60 BUN/Creatinine Ratio (7 - 25 %) 30.0 H Magnesium (1.6 - 2.3 mg/dL) 1.9 Assessment/Plan Assessment/Recommendations: Ms. Marx is a 71-year-old female with history of stage IIIC adenocarcinoma of the cecum on FOLFOX (6 cycles), atrial fibrillation, CAD, CHF who presents for worsening shortness of breath. She had oxygen saturation of about 86% on RA. She was noted to have atrial fibrillation with RVR. She is stable on 3L NC. She has transitioned to oral Cardizem. Echocardiogram pending. Her current chemotherapy regimen is FOLFOX which was last given on . She has had 6 cycles. It is rare to have heart failure from 5-FU. There are rare side effects of cardiac ischemia, cardiac arrhythmia, and ventricular ectomy. Heart failure would also be rare. Due to the clinical condition. I may stop therapy and monitor her closely. Recommendations: 1. Cardiac work up as per primary and cardiology 2. Follow up as outpatient on 08/19/2016 Please call [phone] with any questions. Problem List: 1. Colon cancer 2. S/P colon resection 3. CHF (congestive heart failure) 4. Paroxysmal atrial fibrillation
[2016-08-13 15:30] VITALS: BP 104/80
[2016-08-13] MEDS ORDERED: METOPROLOL TART25 M1 PO (15:55)
[2016-08-13] MEDS ORDERED: DILTIAZEM ER120 M2 PO (15:55)
[2016-08-13] MEDS ORDERED: GABAPENTIN100 M2 PO (15:55)
[2016-08-13] MEDS ORDERED: SERTRALINE HCL25 MG PO (15:55)
[2016-08-13] MEDS ORDERED: HYDROCHLOROTH12.5 M3 PO (15:58)
--- NOTE | 2016-08-13 16:29 | Discharge Summary ---
See Addendum Visit Information Visit Dates Admission Date: 08/11/16 Discharge Date: 08/12/16 Hospital Course Course Attending Physician: YULISSA MANCILLA MD Primary Care Physician: JONNY URIAS,Bess Kaiser Hospital Course: 71-year-old lady with a PMH of HFrEF with LVEF 30-35% (echocardiogram 07/14/2016) , HTN, HLD, infrarenal AAA, CAD, A. fib with history of ventricular ectopy, colon cancer s/p right hemicolectomy (02/2016) currently undergoing chemotherapy with Dr. Houston (completed 6 rounds every 2 weeks of 5-FU) who presents with complaints of persistent/worsening shortness of breath. Symptoms started after her third/fourth round of chemotherapy and have progressively worsened. First episode of shortness of breath waking her up from sleep on Wednesday and a second episode last night with inability to catch her breath associated cyanosis, sweating. # Acute hypoxic respiratory failure: Patient desatted to 86% on RA on admission, requiring 3 liters of oxygen initially. Most likely 2/2 CHF exacerbation. Patient was diursed as discussed below. Oxygen was gradually tapered and she ws able to maintain saturation above 92% on RA. Ambulatory oxygen saturation was 94%. # HFrEF with exacerbation: ProBNP 3930 on admission with CXR showing cardiomegaly with low lung volumes and interstitial prominence with probable bilateral trace pleural effusions along with basilar atelectasis. Patient has had a decline in cardiac output from 50/55 % in February 2016 down to 30/35% in June 2016. This could be secondary to her atrial fibrillation. Patient was diuresed with IV Lasix 20mg BID. She was discharged on HCTZ 12.5mg PO QD. Repeat echocardiogram showed improved EF to 45- 50%. # A. fib/A flutter with RVR Came in with RVR up to 130s. Rate was better controlled on Cardizem drip which was transitioned to oral Cardizem. She was also kept on an increased dose of home med metoprolol. Patient was discharged on Cardizem CD 120mg QD and metoprolol 37.5mg PO BID. She was kept on home med Eliquis 5 mg BID. # Hx of colon cancer s/p hemicolectomy Dr. Saba was consulted. Patient was instructed to follow up with him outpatient on 08/19 as scheduled. # Hx of HLD Continued home med atorvastatin 10 mg daily # Anxiety Psych was consulted. Patient was started and discharged on Zoloft 25mg PO daily and Gabapentin 100mg Q12H per psych rec. - Heart healthy diet - Mild pain pathway - DVT prophylaxis: Eliquis 5 mg BID - Full code Allergies: Coded Allergies: Fish Containing Products (Severe, THROAT CLOSURE 08/13/16) red dye (RASH 01/16/16) Uncoded Allergies: NARCOTICS (Intermediate, VOMITING 01/16/16) Disposition Summary Disposition Principal Diagnosis: CHF exacerbation Additional Diagnosis: Afib with RVR Discharge Disposition: home or self care Discharge Instructions General Discharge Information Code Status: Full Code Patient's Diet: Heart healthy Patient's Activity: As tolerated Follow-Up Instructions/Appts: Please follow up with your faculty head Dr. Collier in a week and your PCP in 1- 2 weeks. Please follow up with Dr. Saba on 08/19. "If you decide you would like to seek mental health care please on a regular ongoing basis please call [phone] to arrange for intake appointment at [facility]." Medications at Discharge Discharge Medications: Stop taking the following medications: Metoprolol Tartrate (Metoprolol Tartrate) 25 MG TABLET ORAL TWICE DAILY Continue taking these medications: Simvastatin (Simvastatin*) 40 MG TABLET 1 Tablet ORAL Every night Qty = 90 Comments: GIVEN LIPITOR IN HOSPITAL LAST GIVEN 08/13/16 AT 5PM Apixaban (Eliquis) 5 MG TABLET 1 Tablet ORAL TWICE DAILY Qty = 60 Comments: DATE 08/14/16 TIME 1000 Start taking the following new medications: Metoprolol Tartrate (Metoprolol Tartrate) 25 MG TABLET 37.5 Milligram ORAL TWICE DAILY Days = 30 No Refills Comments: Last Taken:08/14/16 GIVEN 37.5MG Time:1000 Diltiazem Cd (Diltiazem ER) 120 MG CAP.ER.DEG 120 Milligram ORAL DAILY Days = 30 No Refills Comments: Last Taken:08/14/16 Time:1000 Gabapentin (Gabapentin) 100 MG CAPSULE 100 Milligram ORAL Every 12 hours as needed as needed for ANXIETY Days = 30 No Refills Comments: Last Taken: Time: Sertraline HCl (Sertraline HCl) 25 MG TABLET 25 Milligram ORAL DAILY Days = 30 No Refills Comments: Last Taken:08/14/16 Time:1000 Hydrochlorothiazide (Hydrochlorothiazide) 12.5 MG CAPSULE 1 Capsule ORAL DAILY Qty = 30 No Refills Copies To: MATILDE FULLER MD; Jamarcus COLLIER MD Attending MD Review Statement Documenting Attending: YULISSA MANCILLA MD Other Findings: The patient was seen and agree with the plan of care upon discharge.
--- NOTE | 2016-08-13 17:54 | ECHOCARDIOGRAM REPORT ---
LENNOX REDDING Age: 71 : 1945 Gender: F Exam Date: 08/12/2016 19:20 Exam Location: 1 [address] Ht (in): 63 Wt (lb): 172 BSA: 1.89 BP: 113 / 80 Ordering Physician: NIYAH GHOSH MD Referring Physician: Klaudia Robertson MD Technologist: Kimberly Stanton [facility] Room Number: 181 Indications: AFIB/FLUTTER Rhythm: Atrial fibrillation Technical Quality: Good FINDINGS Left Ventricle Normal size left ventricle. Hypokinetic inferior wall. Mildly abnormal left ventricular ejection fraction estimated at 45-50%. Right Ventricle Right ventricle at upper limits of normal. Right Atrium Normal right atrial size. Left Atrium Moderate left atrial dilatation. Mitral Valve Mitral valve thickened. [id number] mitral regurgitation. Aortic Valve Trileaflet aortic valve. Focal thickening of the aortic valve cusps. No aortic stenosis. No aortic regurgitation. Tricuspid Valve Tricuspid valve not well visualized, grossly normal. Pulmonic Valve Pulmonic valve not well visualized, grossly normal. Pericardium Minimal pericardial effusion (normal variant). Great Vessels Aortic root and proximal ascending aorta not well visualized, grossly normal. CONCLUSIONS 1. Minimal aortic sclerosis is present with no valvular stenosis or insufficiency. 2. Mitral leaflet thickening is present wtih mild to moderate mitral insufficiency and moderate left atrial enlargement 3. A very small pericardial effusion is present. 4. The left ventricular chamber size is normal with mild global hypokinesia which is worse in the inferoposterior segments. The ejection fraction is approximately 45-50%. 5. Mild tricuspid insufficiency is present with no significant pulmonary hypertension. 6. Since the prior study, the left ventricular ejection fraction has improved. Klaudia Robertson M.D. (Electronically Signed) Final Date: 13 Aug 2016 17:53 MEASUREMENTS (Male / Female) Normal Values 2D ECHO LV Diastolic Diameter PLAX 5.9 cm 4.2 - 5.9 / 3.9 - 5.3 cm LV Systolic Diameter PLAX 5.0 cm 2.1 - 4.0 cm LV Fractional Shortening PLAX 15.3 % 25 - 46 % LV Ejection Fraction 2D Teich 31.7 % IVS Diastolic Thickness 1.2 cm LVPW Diastolic Thickness 1.2 cm LV Relative Wall Thickness 0.4 RV Internal Dim ED PLAX 2.9 cm 1.9 - 3.8 cm LVOT Diameter 2.0 cm Aortic Root Diameter 2.6 cm LA Systolic Diameter LX 4.2 cm 3.0 - 4.0 / 2.7 - 3.8 cm LA Volume 78.0 cm 18 - 58 / 22 - 52 cm Ascending Aorta Diameter 3.1 cm DOPPLER AV Peak Velocity 231.0 cm/s AV Peak Gradient 21.3 mmHg AV Mean Velocity 149.0 cm/s AV Mean Gradient 11.0 mmHg AV Velocity Time Integral 38.6 cm LVOT Peak Velocity 163.0 cm/s LVOT Peak Gradient 10.6 mmHg LVOT Mean Velocity 94.9 cm/s LVOT Mean Gradient 4.0 mmHg LVOT Velocity Time Integral 22.4 cm LVOT Stroke Volume 70.4 cm AV Area Cont Eq vti 1.8 cm AV Area Cont Eq pk 2.2 cm MV Peak Velocity 137.0 cm/s MV Peak Gradient 7.5 mmHg MV Mean Velocity 78.5 cm/s MV Mean Gradient 3.0 mmHg Mitral E Point Velocity 128.0 cm/s MV PHT Velocity 145.0 cm/s MV Deceleration [place] 533.0 cm/s MV Pressure Half Time 81.6 ms MV Area PHT 2.7 cm MV Deceleration Time 229.0 ms TV Peak Velocity 206.0 cm/s TR Peak Velocity 216.0 cm/s TR Peak Gradient 18.7 mmHg Right Atrial Pressure 10.0 mmHg Pulmonary Artery Systolic Pressu 28.7 mmHg Right Ventricular Systolic Press 28.7 mmHg PV Peak Velocity 119.0 cm/s PV Peak Gradient 5.7 mmHg PV Mean Velocity 81.8 cm/s PV Mean Gradient 3.0 mmHg PV Velocity Time Integral 20.1 cm LV E' Lateral Velocity 5.4 cm/s Mitral E to LV E' Lateral Ratio 23.9
--- NOTE | 2016-08-13 18:56 | PN- Cardiology ---
Subjective Subjective: Clinically doing better. Rate remains better controlled. Objective Vital Signs and I&Os Vital Signs Date Time Temp Pulse Resp B/P B/P Pulse O2 O2 Flow FiO2 Mean Ox Delivery Rate 08/13 1600 96 Nasal 2.5L Cannula 08/13 1530 97.8 83 16 104/80 96 Nasal 2.5L Cannula 08/13 1040 92 100/50 08/13 1037 97 Nasal 2.5L Cannula 08/13 0817 98.0 98 20 100/72 95 Nasal 3.0L Cannula 08/13 0800 95 Nasal 3.0L Cannula 08/13 0000 93 Nasal 2.0L Cannula 08/12 2200 98.9 93 20 120/70 94 Nasal 3.0L Cannula 08/12 2149 93 120/70 08/12 2134 95 Nasal 2.5L Cannula Intake & Output 08/13 1600 08/13 0800 08/13 0000 08/12 1600 08/12 0808/12 0000 Intake Total 730 200 872 724 120 712 Output Total 022 416 1940 500 500 900 Balance -70 -500 -128 224 -380 -188 Intake, IV 30 32 64 52 Intake, Oral 700 200 840 660 120 660 Number 1 Bowel Movements Output, Urine 442 047 4242 500 500 900 Patient 168 lb 173 lb Weight Weight Chair scale Chair scale Measurement Method Current Medications: Current Medications Sig/Cathy Start time Last Medication Dose Route Stop Time Status Admin Acetaminophen 650 MG .STK-MED ONE 08/12 2148 DC PO 08/12 215 Acetaminophen 650 MG Q6P PRN 08/11 1215 AC 08/12 PO 2149 Albuterol Sulfate 3 ML Q4P PRN 08/11 2215 AC 08/11 INH 2145 Alprazolam 0.25 MG Q12P PRN 08/13 0800 DC PO 08/20 0759 Apixaban 5 MG BID 08/11 2200 AC 08/13 PO 0915 Atorvastatin Calcium 20 MG 1700 08/11 1700 AC 08/12 PO 1728 Diltiazem HCl 120 MG DAILY 08/13 1000 AC 08/13 PO 1040 Diltiazem HCl 25 MG .STK-MED ONE 08/13 0800 DC IV 08/13 0801 Diltiazem HCl 125 MG Q24H 08/11 1145 DC 08/13 Sodium Chloride 100 ML IV 0806 Furosemide 20 MG 0730,1630 08/11 1800 AC 08/13 IV 1631 Gabapentin 100 MG Q12P PRN 08/13 1200 AC PO Ipratropium [place] 2.5 ML Q4P PRN 08/11 2215 AC 08/11 INH 2145 Lidocaine 1 PAT DAILY 08/13 1000 DC EXT Lidocaine 1 PAT DAILY NEEDED PRN 08/13 0845 AC EXT Magnesium Chloride 64 MG ONCE ONE 08/13 0845 DC 08/13 PO 08/13 0846 0916 Metoprolol Tartrate 37.5 MG BID 08/13 1000 AC 08/13 PO 1040 Metoprolol Tartrate 25 MG BID 08/11 2200 DC 08/12 PO 2149 Oxycodone HCl 5 MG Q6 PRN 08/12 0815 AC PO Oxycodone HCl 10 MG Q6 PRN 08/12 0815 AC PO Potassium Chloride 10 MEQ ONCE ONE 08/13 0845 DC 08/13 PO 08/13 0846 1040 Sertraline HCl 25 MG DAILY 08/13 1146 AC 08/13 PO 1400 Results Last 48 Hrs of Labs/Mics: Laboratory Tests 08/13/16 0620: Anion Gap 9, Estimated GFR > 60, BUN/Creatinine Ratio 30.0 H, Magnesium 1.9 08/12/16 0637: Anion Gap 9, Estimated GFR > 60, BUN/Creatinine Ratio 26.7 H, Magnesium 1.8, Triglycerides 245 H, Cholesterol 137, LDL Cholesterol, Calc 52 L, HDL Cholesterol 36 L, Cholesterol/HDL Ratio 4, PT 12.6 H, INR 1.20 H, CBC w Diff NO MAN DIFF REQ, RBC 3.98 L, MCV 98.9, MCH 33.6 H, RDW 18.3 H, MPV 8.2, Gran % 68.2, Lymphocytes % 21.2, Monocytes % 7.6, Eosinophils % 2.4, Basophils % 0.6, Absolute Granulocytes 5.6, Absolute Lymphocytes 1.7, Absolute Monocytes 0.6, Absolute Eosinophils 0.2, Absolute Basophils 0, PUBS MCHC 34.0 08/11/162114: Troponin I 0.04 Assessment/Plan Assessment/Plan Assessment: 1. Coronary artery disease 2. atrial fibrillation with rapid ventricular response 3. Acute on chronic systolic heart failure 4. Colon cancer, recent chemotherapy 5. Nonsustained wide complex tachycardia/VT Recommendations: -echocardiogram shows improved LV function with beter rate control -Continue current medications for now. INcrease metoprolol to 37.5 BID and transition to oral cardizem -If the patient remains stable, she can likely be discharged tomorrow for further evaluation and treatment as an outpatient.
[2016-08-13 20:35] VITALS: BP 110/72
[2016-08-14 00:01] VITALS: BP 110/68
--- NOTE | 2016-08-14 06:19 | PN- Housestaff ---
See Addendum Subjective Follow-up For: 89-year-old male past medical history significant for Tele-Events Since Last Visit: Afib, HR 80s-100s, PVCs & triplets Subjective: Patient seen and examined at bedside. No events reported overnight. Resting comfortably in bed with no complaints. Patient took off the oxygen herself this morning and felt fine without any feeling of anxiety or resp distress. Ambulatory sat 94%. Denies any chest discomfort, palpitations, dyspnea, lightheadedness, dizziness, abdominal pain, n/v/c/d. Walking to the bathroom on her own. Satting well on 2.5 liters of oxygen. Review of Systems Constitutional: Reports: see HPI. Objective Last 24 Hrs of Vital Signs/I&O Vital Signs Date Time Temp Pulse Resp B/P B/P Pulse O2 O2 Flow FiO2 Mean Ox Delivery Rate 08/14 0854 97 Nasal 1.0L Cannula 08/14 0825 97.7 63 18 106/70 92 Room Air 08/14 0821 92 Room Air 08/14 0001 98.2 77 18 110/68 92 Nasal Cannula 08/14 0000 Nasal 1.0L Cannula 08/13 2038 100 110/72 08/13 2035 83 110/72 08/13 1910 95 Nasal 2.5L Cannula 08/13 1600 96 Nasal 2.5L Cannula 08/13 1530 97.8 83 16 104/80 96 Nasal 2.5L Cannula 08/13 1040 92 100/50 08/13 1037 97 Nasal 2.5L Cannula Intake & Output 08/14 1600 08/14 0800 08/14 0000 Intake Total 0 520 Output Total 400 700 Balance -400 -180 Intake, IV 0 Intake, Oral 0 520 Number 0 1 Bowel Movements Output, Urine 400 700 Patient 74.956 kg Weight Weight Chair scale Measurement Method Physical Exam General Appearance: Alert, Oriented X3, Cooperative, No Acute Distress Other Physical Findings: Skin No Significant Lesion, Mid abdominal incision from previous surgery well healed HEENT EOMI, Mucous Membr. moist/pink Cardiovascular Normal S1, Normal S2, Irregularly irregular rhythm Lungs Clear to Auscultation, Normal Air Movement Abdomen Normal Bowel Sounds, Soft, No Tenderness, Increased abdominal girth Extremities No Edema, Normal Pulses Vascular Pulses Symmetrical Current Medications: Current Medications Sig/Cathy Start time Last Medication Dose Route Stop Time Status Admin Acetaminophen 650 MG Q6P PRN 08/11 1215 AC 08/12 PO 2149 Albuterol Sulfate 3 ML Q4P PRN 08/11 2215 AC 08/11 INH 2145 Apixaban 5 MG BID 08/11 2200 AC 08/13 PO 2038 Atorvastatin Calcium 20 MG 1700 08/11 1700 AC 08/13 PO 1910 Diltiazem HCl 180 MG DAILY 08/14 1000 DC PO Diltiazem HCl 120 MG DAILY 08/14 1000 AC PO Diltiazem HCl 120 MG DAILY 08/13 1000 DC 08/13 PO 1040 Furosemide 20 MG 0730,1630 08/11 1800 AC 08/13 IV 1631 Gabapentin 100 MG Q12P PRN 08/13 1200 AC PO Ipratropium [place] 2.5 ML Q4P PRN 08/11 2215 AC 08/11 INH 2145 Lidocaine 1 PAT DAILY NEEDED PRN 08/13 0845 AC EXT Loperamide HCl 2 MG Q8P PRN 08/13 1915 AC 08/13 PO 1921 Metoprolol Tartrate 37.5 MG BID 08/13 1000 AC 08/13 PO 2038 Oxycodone HCl 5 MG Q6 PRN 08/12 0815 AC PO Oxycodone HCl 10 MG Q6 PRN 08/12 0815 AC PO Sertraline HCl 25 MG DAILY 08/13 1146 AC 08/13 PO 1400 Last 24 Hrs of Lab/Joce Results Last 24 Hrs of Labs/Mics: Laboratory Tests 08/14/16 0700: Anion Gap 10, Estimated GFR > 60, BUN/Creatinine Ratio 31.7 H, Magnesium 1.9 Assessment/Plan Assessment: 71-year-old lady with a PMH of HFrEF with LVEF 30-35% (echocardiogram 07/14/2016) , HTN, HLD, infrarenal AAA, CAD, A. fib with history of ventricular ectopy, colon cancer s/p right hemicolectomy (02/2016) currently undergoing chemotherapy with Dr. Houston (completed 6 rounds every 2 weeks of 5-FU) who presents with complaints of persistent/worsening shortness of breath. Symptoms started after her third/fourth round of chemotherapy and have progressively worsened. First episode of shortness of breath waking her up from sleep on Wednesday and a second episode last night with inability to catch her breath associated cyanosis, sweating. # Acute hypoxic respiratory failure: 86% on RA, 96% on NRB on arrival. Requiring 3 liters of oxygen on admission. Pt does not use any oxygen at home. Still requiring oxygen due to anxiety * Vitals per protocol * Oxygen supplement to maintain O2 sat above 92% * TRC neb treatment as needed * Incentive spirometry, DuoNeb * Management as per plans for HF * Psych consulted for anxiety, appreciate recs # HFrEF with exacerbation: ProBNP 3930. CXR on admission - enlarged with low lung volumes with mild interstitial prominence with probable bilateral trace pleural effusions along with basilar atelectasis. Patient has had a decline in cardiac output from 50/55 % in February 2016 down to 30/35% in June 2016. This could be secondary to her atrial fibrillation. At this time unclear/unlikely to be due to the 5- fluorouracil. * Currently on IV Lasix 20mg BID, switch to HCTZ 12.5mg PO QD upon discharge * Appreciate cardio recs * Repeat echocardiogram - improved LV function per Dr. Robertson * BEP daily, monitor renal function and lytes * Daily weights, strict I&O # A. fib/A flutter with RVR Came in with RVR up to 130s. Rate better controlled on Cardizem drip currently. At home patient is currently only on a beta magnolia for rate control. * Continue cardiac monitoring * Cont Cardizem CD 120mg QD * Cont home med metoprolol at increased dose of 37.5mg PO BID * Cont home med Eliquis 5 mg BID * Appreciate cardio recs # Hx of colon cancer s/p hemicolectomy * Dr. Saba consulted, appreciate recs # Hx of HLD * Continue home med atorvastatin 10 mg daily # Anxiety * Appreciate psych recs * Cont Zoloft and Gabapentin PRN per psych rec * May give low dose Xanax acutely for anxiety/panic attack - Heart healthy diet - Mild pain pathway - DVT prophylaxis: Eliquis 5 mg BID - Full code Problem List: 1. Colon cancer 2. HFrEF (heart failure with reduced ejection fraction) 3. Rapid atrial fibrillation Pain Ratin Pain Location: 0 Pain Goal: Remain pain free Pain Plan: Mild path Tomorrow's Labs & Rationales: None
[2016-08-14 08:25] VITALS: BP 106/70
[2016-08-14 10:01] VITALS: BP 110/60
--- NOTE | 2016-08-14 11:13 | PN- Oncology ---
Subjective Subjective: She is feeling better. Oxygen requirement has improved. Review of Systems: Constitutional: Denies: chills, fever. Cardiovascular: Denies: chest pain, peripheral edema. Respiratory: Reports: short of breath, improved Gastrointestinal: Reports: distention. Denies: abdominal pain. Hematologic/Endocrine: Denies: bruising, bleeding. All Other Systems: Reviewed and Negative Objective Vital Signs and I&Os Vital Signs Date Time Temp Pulse Resp B/P B/P Pulse O2 O2 Flow FiO2 Mean Ox Delivery Rate 08/14 1001 114 110/60 08/14 0854 97 Nasal 1.0L Cannula 08/14 0825 97.7 63 18 106/70 92 Room Air 08/14 0821 92 Room Air 08/14 0001 98.2 77 18 110/68 92 Nasal Cannula 08/14 0000 Nasal 1.0L Cannula 08/13 2038 100 110/72 08/13 2035 83 110/72 08/13 1910 95 Nasal 2.5L Cannula 08/13 1600 96 Nasal 2.5L Cannula 08/13 1530 97.8 83 16 104/80 96 Nasal 2.5L Cannula Intake & Output 08/14 1600 08/14 0800 08/14 0000 08/13 1600 08/13 0800 08/13 0000 Intake Total 0 520 730 200 872 Output Total 400 700 151 923 2444 Balance -400 -180 -70 -500 -128 Intake, IV 0 30 32 Intake, Oral 0 520 700 200 840 Number 0 1 1 Bowel Movements Output, Urine [phone] Patient 74.956 kg 76.204 kg Weight Weight Chair scale Chair scale Measurement Method Physical Exam: General Appearance: well developed/nourished, no apparent distress, alert, awake , comfortable Respiratory: chest non-tender, decreased breath sounds (bases), crackles (bases) Cardiovascular: irregularly irregular Gastrointestinal: normal bowel sounds, soft, non-tender, no organomegaly, distention Extremities: normal inspection Neurologic/Psych: awake, alert, oriented x 3 Skin: intact, normal color, warm/dry Current Medications: Current Medications Sig/Cathy Start time Last Medication Dose Route Stop Time Status Admin Acetaminophen 650 MG Q6P PRN 08/11 1215 AC 08/12 PO 2149 Albuterol Sulfate 3 ML Q4P PRN 08/115 DC 08/11 INH 2145 Apixaban 5 MG BID 08/11 2199 AC 08/14 PO 1000 Atorvastatin Calcium 20 MG 1700 08/11 1700 AC 08/13 PO 1910 Diltiazem HCl 60 MG ONCE ONE 08/14 1115 UNVr PO 08/14 1116 Diltiazem HCl 180 MG DAILY 08/14 1000 DC PO Diltiazem HCl 120 MG DAILY 08/14 1000 AC 08/14 PO 1000 Diltiazem HCl 120 MG DAILY 08/13 1000 DC 08/13 PO 1040 Furosemide 20 MG 0730,1630 08/11 1800 AC 08/14 IV 1001 Gabapentin 100 MG Q12P PRN 08/13 1200 AC PO Ipratropium [place] 2.5 ML Q4P PRN 08/11 2215 DC 08/11 INH 2145 Lidocaine 1 PAT DAILY NEEDED PRN 08/13 0845 AC EXT Loperamide HCl 2 MG Q8P PRN 08/13 1915 AC 08/13 PO 1921 Metoprolol Tartrate 37.5 MG BID 08/13 1000 AC 08/14 PO 1001 Oxycodone HCl 5 MG Q6 PRN 08/12 0815 AC PO Oxycodone HCl 10 MG Q6 PRN 08/12 0815 AC PO Sertraline HCl 25 MG DAILY 08/13 1146 AC 08/14 PO 1001 Results Last 24 Hours of Lab Results: Laboratory Tests 08/14 0700 Chemistry Sodium (137 - 145 mmol/L) 140 Potassium (3.5 - 5.1 mmol/L) 4.2 Chloride (98 - 107 mmol/L) 103 Carbon Dioxide (22 - 30 mmol/L) 26 Anion Gap (5 - 16) 10 BUN (7 - 17 mg/dL) 19 H Creatinine (0.5 - 1.0 mg/dL) 0.6 Estimated GFR (>60 ml/min) > 60 BUN/Creatinine Ratio (7 - 25 %) 31.7 H Magnesium (1.6 - 2.3 mg/dL) 1.9 Recent Imaging Studies: Echocardiogram 08/12/2016: 1. Minimal aortic sclerosis is present with no valvular stenosis or insufficiency. 2. Mitral leaflet thickening is present wtih mild to moderate mitral insufficiency and moderate left atrial enlargement 3. A very small pericardial effusion is present. 4. The left ventricular chamber size is normal with mild global hypokinesia which is worse in the inferoposterior segments. The ejection fraction is approximately 45-50%. 5. Mild tricuspid insufficiency is present with no significant pulmonary hypertension. 6. Since the prior study, the left ventricular ejection fraction has improved. Assessment/Plan Assessment/Recommendations: Ms. Marx is a 71-year-old female with history of stage IIIC adenocarcinoma of the cecum on FOLFOX (6 cycles), atrial fibrillation, CAD, CHF who presents for worsening shortness of breath. She had oxygen saturation of about 86% on RA. She was noted to have atrial fibrillation with RVR. Her rate control has improved. She is on oral Cardizem. Oxygen is down to 1L. Echocardiogram is improved. She will finish further work up as an outpatient with her nursing information systems coordinator. With regard to her high risk stage IIIc colon cancer, she has finished 6 of 12 cycles of FOLFOX adjuvant therapy. I will discuss with her regarding further therapy once cardiac work up is finished. Recommendations: 1. Cardiac work up as per primary and cardiology 2. Follow up as outpatient on 08/19/2016 Please call [phone] with any questions. Problem List: 1. Colon cancer 2. CHF (congestive heart failure) 3. Rapid atrial fibrillation 4. S/P colon resection
--- NOTE | 2016-08-14 13:22 | PN- Cardiology ---
Subjective Subjective: Clinically, the patient is feeling better. She is comfortable off oxygen. She remains in atrial fibrillation with a controlled ventricular rate. Objective Vital Signs and I&Os Vital Signs Date Time Temp Pulse Resp B/P B/P Pulse O2 O2 Flow FiO2 Mean Ox Delivery Rate 08/14 1001 114 110/60 08/14 0854 97 Nasal 1.0L Cannula 08/14 0825 97.7 63 18 106/70 92 Room Air 08/14 0821 92 Room Air 08/14 0001 98.2 77 18 110/68 92 Nasal Cannula 08/14 0000 Nasal 1.0L Cannula 08/13 2038 100 110/72 08/13 2035 83 110/72 08/13 1910 95 Nasal 2.5L Cannula 08/13 1600 96 Nasal 2.5L Cannula 08/13 1530 97.8 83 16 104/80 96 Nasal 2.5L Cannula Intake & Output 08/14 1600 08/14 0800 08/14 0000 08/13 1600 08/13 0800 08/13 0000 Intake Total 0 520 730 200 872 Output Total 400 700 388 396 2740 Balance -400 -180 -70 -500 -128 Intake, IV 0 30 32 Intake, Oral 0 520 700 200 840 Number 0 1 1 Bowel Movements Output, Urine 400 [phone] 4338 Patient 165 lb 168 lb Weight Weight Chair scale Chair scale Measurement Method Current Medications: Current Medications Sig/Cathy Start time Last Medication Dose Route Stop Time Status Admin Acetaminophen 650 MG Q6P PRN 08/11 1215 AC 08/12 PO 2149 Albuterol Sulfate 3 ML Q4P PRN 08/11 2215 DC 08/11 INH 2145 Apixaban 5 MG BID 08/11 2200 AC 08/14 PO 1000 Atorvastatin Calcium 20 MG 1700 08/11 1700 AC 08/13 PO 1910 Diltiazem HCl 60 MG ONCE ONE 08/14 1115 CAN PO 08/14 1116 Diltiazem HCl 180 MG DAILY 08/14 1000 DC PO Diltiazem HCl 120 MG DAILY 08/14 1000 AC 08/14 PO 1000 Diltiazem HCl 120 MG DAILY 08/13 1000 DC 08/13 PO 1040 Furosemide 20 MG 0730,1630 08/11 1800 AC 08/14 IV 1001 Gabapentin 100 MG Q12P PRN 08/13 1200 AC PO Ipratropium [place] 2.5 ML Q4P PRN 08/11 2215 DC 08/11 INH 2145 Lidocaine 1 PAT DAILY NEEDED PRN 08/13 0845 AC EXT Loperamide HCl 2 MG Q8P PRN 08/13 1915 AC 08/13 PO 1921 Metoprolol Tartrate 37.5 MG BID 08/13 1000 AC 08/14 PO 1001 Oxycodone HCl 5 MG Q6 PRN 08/12 0815 AC PO Oxycodone HCl 10 MG Q6 PRN 08/12 0815 AC PO Sertraline HCl 25 MG DAILY 08/13 1146 AC 08/14 PO 1001 Results Last 48 Hrs of Labs/Mics: Laboratory Tests 08/14/16 0700: Anion Gap 10, Estimated GFR > 60, BUN/Creatinine Ratio 31.7 H, Magnesium 1.9 08/13/16 0620: Anion Gap 9, Estimated GFR > 60, BUN/Creatinine Ratio 30.0 H, Magnesium 1.9 Assessment/Plan Assessment/Plan Assessment: 1. Coronary artery disease 2. atrial fibrillation with rapid ventricular response 3. Acute on chronic systolic heart failure 4. Colon cancer, recent chemotherapy 5. Nonsustained wide complex tachycardia/VT Recommendations: -Continue current medical regimen for now. -From a cardiac standpoint the patient is stable for discharge -The patient will follow-up with me in the office in one week at that time plans for outpatient cardioversion will be made. -In view of the patient's improved left ventricular function, I do not believe she needs significant diuretic therapy as an outpatient. She could be discharged on low-dose hydrochlorothiazide as previously.
[2016-09-06] MEDS ORDERED: PROAIR HFA8.5 GM INH (17:16)
== END 2016-08-14 14:40 | DRG 291 ==
LOC: ERH 08:29 → 1NO 10:52 → ERHI 10:52 → ENRESERV 14:37 → ENTRNSPT 16:54 → 1NO 17:20 → CMPTRNSPT 08-12 07:20 → 1NO 08-12 08:47 → ENPENDDIS 08-14 11:23 → 1NO 08-14 14:40
PROVIDERS: Emergency Medicine; Internal Medicine; ADMIT Internal Medicine
DX: I11.0 Hypertensive heart disease with heart failure (principal); J96.01 Acute respiratory failure with hypoxia; I47.2 Ventricular tachycardia; C18.0 Malignant neoplasm of cecum; I50.23 Acute on chronic systolic (congestive) heart failure; I48.0 Paroxysmal atrial fibrillation; E78.5 Hyperlipidemia, unspecified; E87.6 Hypokalemia; I25.10 Atherosclerotic heart disease of native coronary artery without angina pectoris; Z87.891 Personal history of nicotine dependence
CPT/HCPCS: 1NP; 36415; 81001; 82436; 93005; 93010; 93306; 96374; 96375; 99291; J1940